=== PATIENT | male | born 1955 | race Caucasian/White ===

== ENCOUNTER 2017-06-08 04:11 | Inpatient (IN) | payer OTHER ==
--- NOTE | 2017-06-08 04:42 | ED ---
General Adult HPI - General Source: patient, RN notes reviewed, old records reviewed Mode of arrival: ambulatory Limitations: no limitations <Bernard Mohan - Last Filed: 06/08/17 06:22> <Isaias Butler - Last Filed: 06/08/17 08:43> - General Chief complaint: Chest Pain Stated complaint: chest/abd pain Time Seen by Provider: 06/08/17 04:21 - History of Present Illness Initial comments: 62-year-old male presents for evaluation of epigastric and right upper quadrant pain. Patient states this has been present for the past one month. He has been evaluated by his primary care physician and his leadership development consultant for this pain. States that the pain was more severe this evening, woke him from sleep. Denies nausea vomiting. Patient states he's had a normal bowel movements. Denies fever or chills. Denies central chest pain or pressure. He does have history of open heart surgery in 2012, as well as history of atrial fibrillation , is currently on Coumadin. Denies shortness of breath. Denies lower abdominal pain. (Bernard Mohan) - Related Data Allergies Allergy/AdvReac Type Severity Reaction Status Date / Time No Known Allergies Allergy Verified 06/08/17 07:55 Review of Systems ROS Other: All systems not noted in ROS Statement are negative. <Bernard Mohan - Last Filed: 06/08/17 06:22> ROS Other: All systems not noted in ROS Statement are negative. <Isaias Butler - Last Filed: 06/08/17 08:43> ROS Statement: Those systems with pertinent positive or pertinent negative responses have been documented in the HPI. Past Medical History Past Medical History: Coronary Artery Disease (CAD), Hyperlipidemia, Hypertension, Prostate Disorder History of Any Multi-Drug Resistant Organisms: None Reported Past Surgical History: Coronary Bypass/CABG Past Psychological History: No Psychological Hx Reported Smoking Status: Former smoker Past Alcohol Use History: None Reported Past Drug Use History: None Reported <Bernard Mohan - Last Filed: 06/08/17 06:22> General Exam Limitations: no limitations General appearance: alert, in no apparent distress Head exam: Present: atraumatic, normocephalic Eye exam: Present: normal appearance, PERRL, EOMI ENT exam: Present: normal exam, normal oropharynx, mucous membranes dry Neck exam: Present: normal inspection. Absent: tenderness, meningismus Respiratory exam: Present: normal lung sounds bilaterally. Absent: respiratory distress, wheezes Cardiovascular Exam: Present: regular rate, normal rhythm GI/Abdominal exam: Present: soft, distended, tenderness (Epigastric and right upper quadrant tenderness) Extremities exam: Present: normal inspection, normal capillary refill. Absent: pedal edema Neurological exam: Present: alert, oriented X3, CN II-XII intact. Absent: motor sensory deficit Psychiatric exam: Present: normal affect, normal mood Skin exam: Present: warm, dry, intact. Absent: cyanosis, diaphoretic <Bernard Mohan - Last Filed: 06/08/17 06:22> Course <Bernard Mohan - Last Filed: 06/08/17 06:22> <Isaias Butler - Last Filed: 06/08/17 08:43> Vital Signs 06/08/17 06/08/17 04:15 06:16 Temperature 97.0 F L Pulse Rate 115 H 76 Respiratory 20 18 Rate Blood Pressure 113/71 104/68 O2 Sat by Pulse 97 96 Oximetry - Reevaluation(s) Reevaluation #1: 06/08/17 0700 Patient's care is signed out to Dr. Butler at shift change, awaiting right upper quadrant ultrasound. (Bernard Mohan) EKG Findings - EKG Comments: EKG Findings:: EKG shows sinus tachycardia, ventricular rate 108, [place] interval 154, castration 74, QTC 444, no ST segment elevation or depression <Bernard Mohan - Last Filed: 06/08/17 06:22> Medical Decision Making - Lab Data Result diagrams: 06/08/17 04:45 06/08/17 04:45 <Bernard Mohan - Last Filed: 06/08/17 06:22> - Lab Data Result diagrams: 06/08/17 04:45 06/08/17 04:45 - Radiology Data Radiology results: report reviewed (Ultrasound gallbladder shows the liver is diffusely heterogeneous and course patient suspicion for underlying hepatocellular disease. No evidence of cholelithiasis or acute cholecystitis.) , image reviewed (Chest x-ray shows postoperative changes. No acute findings.) <Isaias Butler - Last Filed: 06/08/17 08:43> - Medical Decision Making 62-year-old male presenting with one month history of epigastric pain and right upper quadrant pain. Patient does have significant cardiac disease, denies any central chest pain, EKG is nonischemic. Laboratory studies reveal white blood cell count 7.2, hemoglobin 14.1, INR is 2.0 which is therapeutic. Total bili elevated 2.1, with no baseline for comparison, AST is significantly elevated 663 , ALT elevated at 91. Alk phos 436. Troponin is negative. Patient does have remote history of daily alcohol use, however he states he has not had a drink in several months. Given the abnormal liver tests, ultrasound will be obtained. (Bernard Mohan) Patient was reevaluated by myself, Dr. Butler. Patient resting comfortably in bed. Abdomen is soft. There is mild hepatomegaly. There is mild to moderate tenderness to the epigastric and right upper quadrant. Patient and family updated on results. Case was discussed in detail with Dr. Padilla, who will admit for Dr. Woowdard. She does request hepatitis panel, subcu heparin, aspirin, repeat troponins, and consult with cardiology and gastroenterology. Patient and family were updated on plan. (Isaias Butler) - Lab Data Lab Results 06/08/17 06/08/17 06/08/17 Range/Units 04:45 04:45 04:45 WBC 7.2 (3.8-10.6) k/uL RBC 4.68 (4.30-5.90) m/uL Hgb 14.1 (13.0-17.5) gm/dL Hct 46.6 (39.0-53.0) % MCV 99.5 (80.0-100.0) fL MCH 30.2 (25.0-35.0) pg MCHC 30.3 L (31.0-37.0) g/dL RDW 14.3 (11.5-15.5) % Plt Count 317 (150-450) k/uL Neutrophils % 78 % Lymphocytes % 11 % Monocytes % 6 % Eosinophils % 1 % Basophils % 1 % Neutrophils # 5.7 (1.3-7.7) k/uL Lymphocytes # 0.8 L (1.0-4.8) k/uL Monocytes # 0.4 (0-1.0) k/uL Eosinophils # 0.1 (0-0.7) k/uL Basophils # 0.1 (0-0.2) k/uL Macrocytosis Slight PT (9.0-12.0) sec INR (<1.2) APTT (22.0-30.0) sec Sodium 138 (137-145) mmol/L Potassium 4.9 (3.5-5.1) mmol/L Chloride 101 (98-107) mmol/L Carbon Dioxide 24 (22-30) mmol/L Anion Gap 13 mmol/L BUN 22 H (9-20) mg/dL Creatinine 0.90 (0.66-1.25) mg/dL Est GFR (MDRD) Af Amer >60 (>60 ml/min/1.73 sqM) Est GFR (MDRD) Non-Af >60 (>60 ml/min/1.73 sqM) Glucose 87 (74-99) mg/dL Calcium 9.2 (8.4-10.2) mg/dL Magnesium 1.7 (1.6-2.3) mg/dL Total Bilirubin 2.1 H (0.2-1.3) mg/dL AST 663 H (17-59) U/L ALT 91 H (21-72) U/L Alkaline Phosphatase 436 H (38-126) U/L Total Creatine Kinase 1517 H (55-170) U/L CK-MB (CK-2) 0.3 (0.0-2.4) ng/mL CK-MB (CK-2) Rel Index 0.0 Troponin I <0.012 (0.000-0.034) ng/mL NT-Pro-B Natriuret Pep pg/mL Total Protein 6.7 (6.3-8.2) g/dL Albumin 3.5 (3.5-5.0) g/dL Amylase 31 (30-110) U/L Lipase 37 (23-300) U/L 06/08/17 06/08/17 Range/Units 04:45 04:45 WBC (3.8-10.6) k/uL RBC (4.30-5.90) m/uL Hgb (13.0-17.5) gm/dL Hct (39.0-53.0) % MCV (80.0-100.0) fL MCH (25.0-35.0) pg MCHC (31.0-37.0) g/dL RDW (11.5-15.5) % Plt Count (150-450) k/uL Neutrophils % % Lymphocytes % % Monocytes % % Eosinophils % % Basophils % % Neutrophils # (1.3-7.7) k/uL Lymphocytes # (1.0-4.8) k/uL Monocytes # (0-1.0) k/uL Eosinophils # (0-0.7) k/uL Basophils # (0-0.2) k/uL Macrocytosis PT 18.2 H (9.0-12.0) sec INR 2.0 H (<1.2) APTT 28.9 (22.0-30.0) sec Sodium (137-145) mmol/L Potassium (3.5-5.1) mmol/L Chloride (98-107) mmol/L Carbon Dioxide (22-30) mmol/L Anion Gap mmol/L BUN (9-20) mg/dL Creatinine (0.66-1.25) mg/dL Est GFR (MDRD) Af Amer (>60 ml/min/1.73 sqM) Est GFR (MDRD) Non-Af (>60 ml/min/1.73 sqM) Glucose (74-99) mg/dL Calcium (8.4-10.2) mg/dL Magnesium (1.6-2.3) mg/dL Total Bilirubin (0.2-1.3) mg/dL AST (17-59) U/L ALT (21-72) U/L Alkaline Phosphatase (38-126) U/L Total Creatine Kinase (55-170) U/L CK-MB (CK-2) (0.0-2.4) ng/mL CK-MB (CK-2) Rel Index Troponin I (0.000-0.034) ng/mL NT-Pro-B Natriuret Pep 369 pg/mL Total Protein (6.3-8.2) g/dL Albumin (3.5-5.0) g/dL Amylase (30-110) U/L Lipase (23-300) U/L Disposition <Bernard Mohan - Last Filed: 06/08/17 06:22> Decision Time: 08:43 <Isaias Butler - Last Filed: 06/08/17 08:43> Clinical Impression: Chest pain, Abdominal pain, Elevated liver enzymes Disposition: ADMITTED IP TO THIS [facility] Referrals: Zach Woodward MD [Primary Care Provider] - 1-2 days
[2017-06-08 05:03] LABS: Basophils # (A) 0.1 k/uL (0-0.2); Basophils % (A) 1 %; Eosinophils # (A) 0.1 k/uL (0-0.7); Eosinophils % (A) 1 %; HCT 46.6 % (39.0-53.0); HGB 14.1 gm/dL (13.0-17.5); Lymphocytes # (A) 0.8 k/uL (1.0-4.8); Lymphocytes % (A) 11 %; MCH 30.2 pg (25.0-35.0); MCHC 30.3 g/dL (31.0-37.0); MCV 99.5 fL (80.0-100.0); Macrocytosis Slight; Mean Platelet Volume 7.3; Monocytes # (A) 0.4 k/uL (0-1.0); Monocytes % (A) 6 %; Neutrophils # (A) 5.7 k/uL (1.3-7.7); Neutrophils % (A) 78 %; Platelet Count 317 k/uL (150-450); RBC 4.68 m/uL (4.30-5.90); RDW 14.3 % (11.5-15.5); WBC 7.2 k/uL (3.8-10.6)
[2017-06-08 05:08] LABS: Partial Thromboplastin Time 28.9 sec (22.0-30.0); Prothrombin Time 18.2 sec (9.0-12.0)
[2017-06-08 05:09] LABS: ALT 91 U/L (21-72); AST 663 U/L (17-59); Albumin 3.5 g/dL (3.5-5.0); Alkaline Phosphatase 436 U/L (38-126); Amylase 31 U/L (30-110); Anion Gap 13 mmol/L; Blood Urea Nitrogen 22 mg/dL (9-20); Calcium 9.2 mg/dL (8.4-10.2); Carbon Dioxide 24 mmol/L (22-30); Chloride 101 mmol/L (98-107); Glucose 87 mg/dL (74-99); Lipase 37 U/L (23-300); Potassium 4.9 mmol/L (3.5-5.1); Sodium 138 mmol/L (137-145); Total Bilirubin 2.1 mg/dL (0.2-1.3); Total Protein 6.7 g/dL (6.3-8.2)
--- NOTE | 2017-06-08 05:28 | XR ---
EXAM: XR Chest, 2 Views CLINICAL HISTORY: ITS.REASON XR Reason: Chest Pain TECHNIQUE: Frontal and lateral views of the chest. COMPARISON: No relevant prior studies available. FINDINGS: Lungs: Low lung volumes. Pleural space: Unremarkable. No pneumothorax. Heart: CABG changes noted. Mediastinum: Unremarkable. Bones/joints: Unremarkable. Other findings: IMPRESSION: No acute findings.
[2017-06-08 05:30] LABS: Creatine Kinase 1517 U/L (55-170)
[2017-06-08 05:42] LABS: Creatine Kinase MB 0.3 ng/mL (0.0-2.4); Troponin I <0.012 ng/mL (0.000-0.034)
[2017-06-08] MEDS: SODIUM CHLORIDE 0.9% 1,000 ML IV SCH ×2 (06:15→16:31)
--- NOTE | 2017-06-08 07:44 | US ---
EXAMINATION TYPE: US gallbladder DATE OF EXAM: 06/08/2017 COMPARISON: NONE CLINICAL HISTORY: Pain. Bloated, hardened abdomen EXAM MEASUREMENTS: Liver Length: 23.5 cm Gallbladder Wall: 0.2cm CBD: 0.5 cm Right Kidney: 10.4 x 5.0 x 6.6 centimeter. Pancreas: Obscured by bowel gas Liver: enlarged, diffusely heterogeneous. This limits evaluation for underlying hepatic masses. Gallbladder: small, no stones seen Evidence for sonographic Avalos's sign: no CBD: Within normal limits Right Kidney: No hydronephrosis or masses seen Liver is enlarged and diffusely heterogenous in echotexture; IMPRESSION: 1. The liver is diffusely heterogenous and coarsened in echotexture raising the suspicion for underly ing hepatocellular disease. 2. No sonographic evidence of cholelithiasis or acute cholecystitis.
[2017-06-08] MEDS ORDERED: ASPIRIN 81 MG PO STA (08:44)
[2017-06-08] MEDS ORDERED: NITROGLYCERIN SL TABS 0.4 MG TAB SUBLINGUAL PRN (08:44)
[2017-06-08] MEDS: HEPARIN SODIUM,PORCINE 5,000 UNIT/ML 1 ML VIAL SQ SCH ×2 (09:25→20:16)
[2017-06-08] MEDS: PANTOPRAZOLE 40 MG/10 ML VIAL IVP SCH (09:27)
[2017-06-08 11:37] LABS: Creatine Kinase 1339 U/L (55-170)
[2017-06-08 11:50] LABS: Creatine Kinase MB 0.5 ng/mL (0.0-2.4); Troponin I <0.012 ng/mL (0.000-0.034)
[2017-06-08] MEDS ORDERED: INFLUENZA VACCINE (6 MOS+) 60 MCG/0.5 ML SYRINGE IM ONE (11:57)
[2017-06-08] MEDS ORDERED: PNEUMOCOCCAL VACC-PNEUMOVAX 23 25 MCG/0.5 ML VIAL IM ONE (11:58)
[2017-06-08] MEDS ORDERED: IOHEXOL 350 MG/ML 25 ML BOTTLE (ORAL USE) PO PRN (12:37)
[2017-06-08] MEDS ORDERED: RX INFO: IV CONTRAST WAS GIVEN 1 EACH MISC MISCELLANE PRN (12:37)
--- NOTE | 2017-06-08 14:47 | CT ---
EXAMINATION TYPE: CT abdomen pelvis w con DATE OF EXAM: 06/08/2017 COMPARISON: 07/27/2011 INDICATION: Epigastric pain x 1 1/2 months and elevated LFTs. DLP: 1847.3 mGycm, Automated exposure control for dose reduction was used. CONTRAST: 100 mL of Omnipaque 300. Study performed with Oral Contrast TECHNIQUE: Axial images were obtained from above the diaphragm to the pubic rami in the axial plane a t 5 mm thick sections. Reconstructed images are reviewed on the computer in the coronal plane. FINDINGS: Limited CT sections are obtained the lung bases. Small right pleural effusion is present. Minimal co mpressive atelectasis within the dependent portion of the right lung base. CT ABDOMEN: Liver: Small amount of ascites is adjacent to the liver. Liver is heterogenous density. Large infiltr ative mass appears to be present predominantly within the right lobe of the liver. An infiltrative pr ocess could also be considered within the differential.. Additional workup of the liver is recommende d. Spleen: Normal Pancreas: Fatty infiltration present within the residual atrophic pancreas. Adrenal glands: The adrenal glands are normal. Gallbladder: Normal Kidneys: No masses are evident. No hydronephrosis is present. No cysts are present. Delayed images were obtained through the kidneys, which remain unremarkable. Aorta: Vascular calcification is within the aorta. Inferior vena cava: Normal. CT PELVIS: Loops of bowel within the abdomen and pelvis are normal. There are scattered diverticuli within t he sigmoid colon without evidence of acute diverticulitis. Oral contrast passes through small bowel l oops to the proximal colon. Appendix: Normal as visualized. Urinary bladder: Normal. Genitourinary structures: Prostate contains multiple brachytherapy seeds. Osseous structures: Degenerative changes are within the spine. Degenerative disc changes are present. No suspicious lytic or sclerotic lesions are identified. IMPRESSIONS: 1. Infiltrative process within the liver suspicious for metastatic lesion such as prostate metastase s. Liver is enlarged. Additional workup is recommended. 2. Minimal ascites adjacent to the liver. 3. Small right pleural effusion with adjacent atelectasis or pneumonia right lung base.
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
[2017-06-08 16:55] LABS: Hepatitis A Antibody IgM Non-Reactive (Non-Reactive); Hepatitis B Core IgM Non-Reactive (Non-Reactive)
[2017-06-08 17:08] LABS: Creatine Kinase 1214 U/L (55-170)
[2017-06-08 17:18] LABS: Creatine Kinase MB 0.6 ng/mL (0.0-2.4); Troponin I <0.012 ng/mL (0.000-0.034)
[2017-06-08] MEDS: MORPHINE SULFATE 4 MG/ML SYRINGE IVP PRN ×2 (18:32→23:30)
[2017-06-08] MEDS: METOPROLOL TARTRATE 25 MG TAB PO SCH (20:16)
[2017-06-08] MEDS: LISINOPRIL 20 MG TAB PO SCH (20:16)
[2017-06-08] MEDS ORDERED: METOPROLOL TARTRATE 50 MG TAB PO SCH (21:00)
--- NOTE | 2017-06-09 01:03 | CONS ---
CONSULTATION This is a 62-year-old gentleman with a history of CAD, prior aortocoronary bypass surgery that was performed in 2012. This gentleman also has prostate CA for which he received treatment and his PSA still seems high. I saw him in the office on the of this month. He went for a routine lab work at [facility] and was found to have INR of more than 8.0. I tried to give him oral vitamin K, but this was not available. Patient did not have any active bleeding and a repeat INR on the was 5.5. This hospitalization is because of abdominal discomfort. The patient has significant abnormalities of all his liver function tests. His CPK is elevated and his AST is 663, ALT is 91, alkaline phosphatase is 436. Troponins are normal. Patient has stable CAD without symptoms of angina, paroxysmal atrial fibrillation for which he was on Coumadin that has been held for the last 7-8 days. INR today is 2.0. His abdominal discomfort seems to be related more or less to the liver pathology and he is getting a CAT scan and further investigation. Cardiac-mckoy he is stable, has no angina, but given his circumstances, I would discontinue completely any to form of anticoagulation until the liver issues are resolved or addressed. Additionally, I would also recommend that we stop atorvastatin for this patient. He has underlying hypertension, history of prostate CA status post radiation therapy, hypertension and hypercholesterolemia, but atorvastatin 40 mg will be discontinued. PAST MEDICAL HISTORY: 1. CAD with prior aortocoronary bypass surgery that was performed in 2012 details of which are not available to me immediately. 2. Prostate CA status post radiation therapy. 3. Paroxysmal atrial fibrillation. 4. Hypercholesterolemia. 5. Hypertension. MEDICATIONS: At home include Flomax, Lipitor 40 mg daily, Zestril 20 mg b.i.d., vitamin D supplements, Lopressor 75 mg b.i.d., vitamin D supplements. He has been off Coumadin for quite some time. It appears that his sudden elevation of INR was probably related to his underlying liver issues. Ultrasound of the gallbladder revealed that the liver area has coarse texture, raising the suspicion for hepatocellular disease, but no evidence of any cholelithiasis. He also had a CT scan of the abdomen and pelvis and there is evidence of probable infiltrative process for metastatic lesion and this patient's PSA has also been elevated. There is enlargement of liver, minimal ascites, right pleural effusion which showed mild atelectasis. EXAMINATION: Blood pressure is 116/70, pulse rate is about 88 per minute sinus. HEENT: Unremarkable. Fundus was not examined by me. NECK: Supple. There is no JVD. I do not hear a carotid bruit. Heart exam reveals S1, S2 with some tachycardia. No significant murmurs. Lungs reveal bilateral air entry. Abdomen is distended. There is hepatomegaly noted. Lower extremities reveal diminished pulses. Central nervous system grossly no focal deficits. EKG revealed sinus tachycardia, cannot exclude old inferior AL. No acute changes. Troponin levels are normal. IMPRESSION: 1. Hepatomegaly to rule out any infiltrative process in the liver such as metastasis. Significant abnormality of liver function tests and recent elevation of INR, which is understandable because of liver pathology. 2. Stable coronary artery disease with prior bypass surgery. 3. History of prostate carcinoma with the rising PSA according to the patient. He received radiation therapy. 4. Hyperlipidemia. 5. Hypertension. 6. History of paroxysmal atrial fibrillation. RECOMMENDATIONS: We will discontinue atorvastatin and all forms of anticoagulation and seek input from Oncology and Urology regarding his prostate issues. Prognosis remains guarded. No intervention from a cardiac standpoint. Thank you very much for the consult. MMODL / IJN: [id number] /
[2017-06-09] MEDS: SODIUM CHLORIDE 0.9% 1,000 ML IV SCH ×2 (05:02→15:12)
[2017-06-09] MEDS: MORPHINE SULFATE 4 MG/ML SYRINGE IVP PRN ×2 (06:22→15:12)
[2017-06-09 07:06] LABS: Basophils # (A) 0.1 k/uL (0-0.2); Basophils % (A) 1 %; Eosinophils # (A) 0.1 k/uL (0-0.7); Eosinophils % (A) 2 %; HCT 44.1 % (39.0-53.0); HGB 13.3 gm/dL (13.0-17.5); Lymphocytes # (A) 0.9 k/uL (1.0-4.8); Lymphocytes % (A) 16 %; MCH 29.4 pg (25.0-35.0); MCHC 30.1 g/dL (31.0-37.0); MCV 97.7 fL (80.0-100.0); Mean Platelet Volume 7.5; Monocytes # (A) 0.5 k/uL (0-1.0); Monocytes % (A) 8 %; Neutrophils # (A) 4.1 k/uL (1.3-7.7); Neutrophils % (A) 71 %; Platelet Count 299 k/uL (150-450); RBC 4.51 m/uL (4.30-5.90); RDW 14.5 % (11.5-15.5); WBC 5.7 k/uL (3.8-10.6)
[2017-06-09 07:15] LABS: ALT 83 U/L (21-72); AST 631 U/L (17-59); Alkaline Phosphatase 372 U/L (38-126); Anion Gap 11 mmol/L; Blood Urea Nitrogen 21 mg/dL (9-20); Calcium 8.5 mg/dL (8.4-10.2); Carbon Dioxide 24 mmol/L (22-30); Chloride 103 mmol/L (98-107); Cholesterol 92 mg/dL (<200); Glucose 73 mg/dL (74-99); HDL Cholesterol 28 mg/dL (40-60); LDL Cholesterol,Calculated 42 mg/dL (0-99); Potassium 4.5 mmol/L (3.5-5.1); Sodium 138 mmol/L (137-145); Total Bilirubin 1.7 mg/dL (0.2-1.3); Triglycerides 112 mg/dL (<150)
[2017-06-09] MEDS: HEPARIN SODIUM,PORCINE 5,000 UNIT/ML 1 ML VIAL SQ SCH ×2 (08:15→20:10)
[2017-06-09] MEDS: LISINOPRIL 20 MG TAB PO SCH ×2 (08:16→20:10)
[2017-06-09] MEDS: METOPROLOL TARTRATE 25 MG TAB PO SCH ×2 (08:16→20:10)
[2017-06-09] MEDS: PANTOPRAZOLE 40 MG/10 ML VIAL IVP SCH (08:16)
[2017-06-09] MEDS: TAMSULOSIN 0.4 MG CAP.ER.24H PO SCH (08:16)
[2017-06-09] MEDS: ONDANSETRON 4 MG/2 ML VIAL IVP PRN (08:20)
[2017-06-09] MEDS ORDERED: ASPIRIN 325 MG TAB PO SCH (09:00)
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
[2017-06-09 11:49] VITALS: BMI 33.8
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
--- NOTE | 2017-06-09 16:24 | PN ---
PROGRESS NOTE Mr. Evans is a 62-year-old gentleman with the history of aortocoronary bypass surgery in 2013. He also has paroxysmal atrial fibrillation. He has prostate cancer and now presented with a liver function abnormalities and also concern that there may be metastasis. He remains in sinus rhythm, hemodynamically stable. Vital signs are stable. S1, S2 heard normally. Lungs are clear. Abdomen and lower extremity exam unchanged. There is evidence of hepatomegaly noted. From a cardiac standpoint, no intervention is necessary. We will continue the beta blockers. Under the circumstances, I would not anticoagulated the patient and also stop atorvastatin. I will await input from Dr. Miller and Oncology regarding the possibility of any metastatic disease to the liver. I will see the patient as needed during the hospitalization. Thank you very much for the consult. MMCHASEL / IJN: [id number] /
[2017-06-10] MEDS: SODIUM CHLORIDE 0.9% 1,000 ML IV SCH ×3 (02:11→21:03)
[2017-06-10 07:52] LABS: Basophils # (A) 0.1 k/uL (0-0.2); Basophils % (A) 2 %; Eosinophils # (A) 0.1 k/uL (0-0.7); Eosinophils % (A) 2 %; HCT 37.8 % (39.0-53.0); HGB 11.7 gm/dL (13.0-17.5); Hypochromasia Slight; Lymphocytes # (A) 0.6 k/uL (1.0-4.8); Lymphocytes % (A) 12 %; MCH 29.9 pg (25.0-35.0); MCHC 30.9 g/dL (31.0-37.0); Mean Platelet Volume 7.9; Monocytes # (A) 0.5 k/uL (0-1.0); Monocytes % (A) 9 %; Neutrophils # (A) 3.9 k/uL (1.3-7.7); Neutrophils % (A) 74 %; Platelet Count 240 k/uL (150-450); RDW 14.5 % (11.5-15.5); WBC 5.3 k/uL (3.8-10.6)
[2017-06-10 08:17] LABS: ALT 70 U/L (21-72); AST 537 U/L (17-59); Albumin 2.7 g/dL (3.5-5.0); Alkaline Phosphatase 295 U/L (38-126); Anion Gap 10 mmol/L; Blood Urea Nitrogen 21 mg/dL (9-20); Calcium 8.2 mg/dL (8.4-10.2); Carbon Dioxide 21 mmol/L (22-30); Chloride 106 mmol/L (98-107); Glucose 68 mg/dL (74-99); Potassium 4.5 mmol/L (3.5-5.1); Sodium 137 mmol/L (137-145); Total Bilirubin 1.6 mg/dL (0.2-1.3); Total Protein 5.6 g/dL (6.3-8.2)
[2017-06-10] MEDS: METOPROLOL TARTRATE 25 MG TAB PO SCH ×2 (09:02→21:00)
[2017-06-10] MEDS: HEPARIN SODIUM,PORCINE 5,000 UNIT/ML 1 ML VIAL SQ SCH ×2 (09:02→21:00)
[2017-06-10] MEDS: PANTOPRAZOLE 40 MG/10 ML VIAL IVP SCH (09:02)
[2017-06-10] MEDS: LISINOPRIL 20 MG TAB PO SCH ×2 (09:02→21:00)
[2017-06-10] MEDS: ONDANSETRON 4 MG/2 ML VIAL IVP PRN ×3 (09:03→22:14)
[2017-06-10] MEDS: MORPHINE SULFATE 4 MG/ML SYRINGE IVP PRN ×3 (09:03→22:14)
--- NOTE | 2017-06-10 10:45 | P.PN ---
Subjective Progress Note Date: 06/10/17 Principal diagnosis: Elevated liver enzymes possible infiltrative liver mass 62-year-old male with a history of prostate carcinoma admitted with elevated liver enzymes epigastric soreness pain radiographic imaging suggested of a possible infiltrative liver mass possible metastasis. LFTs are improving. Denies fever chills nausea vomiting. Mild midepigastric soreness. Reports upper thigh swelling. AFP less than 1.3. Total bilirubin 1.6. AST 537. ALT 70. Alkaline phosphatase 295. MRCP scheduled for 10:45 AM. Objective - Vital Signs Vital signs: Vital Signs Temp 97.9 F 06/10/17 07:00 Pulse 99 06/10/17 07:00 Resp 16 06/10/17 07:00 BP 116/75 06/10/17 07:00 Pulse Ox 94 L 06/10/17 07:00 Intake & Output 06/09/17 06/10/17 06/10/17 18:59 06:59 18:59 Intake Total 600 1100 Output Total 0 Balance 600 1100 Weight 103.9 kg Intake: Intake, IV Titration 1100 Amount Sodium Chloride 0.9% 1, 1100 000 ml @ 100 mls/hr IV . Q10H [facility] Rx#:[id number] Oral 600 Output: Urine 0 Other: Voiding Method Toilet Urinal # Voids 1 - Exam General appearance: The patient is alert, oriented, in no acute distress. HET: Head is normocephalic and atraumatic. Pupils are equal and reactive. Oropharynx is clear without lesions. Neck: Supple without lymphadenopathy. Trachea midline. Heart: S1 S2. Regular rate and rhythm. Lungs: No crackles or wheezes are heard. Abdomen: Soft, mild midepigastric soreness, nondistended with bowel sounds. No peritoneal signs. No palpable organomegaly or masses. Extremities: Normal skin color and turgor. No cyanosis, rash, ulceration, clubbing, or edema. Radial and pedal pulses are 2/4 bilaterally. Neurological: No focal deficits. Strength and sensation are grossly intact. - Labs CBC & Chem 7: 06/10/17 07:19 06/10/17 07:19 Labs: Abnormal Lab Results - Last 24 Hours (Table) 06/10/17 06/10/17 Range/Units 07:19 07:19 RBC 3.90 L (4.30-5.90) m/uL Hgb 11.7 L (13.0-17.5) gm/dL Hct 37.8 L (39.0-53.0) % MCHC 30.9 L (31.0-37.0) g/dL Lymphocytes # 0.6 L (1.0-4.8) k/uL Carbon Dioxide 21 L (22-30) mmol/L BUN 21 H (9-20) mg/dL Glucose 68 L (74-99) mg/dL Calcium 8.2 L (8.4-10.2) mg/dL Total Bilirubin 1.6 H (0.2-1.3) mg/dL AST 537 H (17-59) U/L Alkaline Phosphatase 295 H (38-126) U/L Total Protein 5.6 L (6.3-8.2) g/dL Albumin 2.7 L (3.5-5.0) g/dL Assessment and Plan (1) Epigastric pain Narrative/Plan: 62-year-old male admitted with persistent epigastric soreness pain x 2 months duration with elevated liver enzymes and radiographic imaging suggestive of infiltrative liver metastasis with history of underlying prostate carcinoma. History of bleeding peptic ulcer disease post CABG. Current Visit: Yes Status: Acute Code(s): R10.13 - EPIGASTRIC PAIN SNOMED Code(s): 13341980 (2) History of prostate cancer Current Visit: Yes Status: Chronic Priority: High Code(s): Z85.46 - PERSONAL HISTORY OF MALIGNANT NEOPLASM OF PROSTATE SNOMED Code(s): 080659611 (3) Elevated liver enzymes Narrative/Plan: Possible infiltrative disease possible drug induced liver injury possible combination of both. Statin medication discontinued. Current Visit: Yes Status: Acute Priority: High Code(s): R74.8 - ABNORMAL LEVELS OF OTHER SERUM ENZYMES SNOMED Code(s): 314803973 (4) Warfarin-induced coagulopathy Narrative/Plan: Elevated INR 1 week ago reported in the 9 range Coumadin on hold. Current Visit: Yes Status: Acute Code(s): D68.32 - HEMORRHAGIC DISORD D/T EXTRINSIC CIRCULATING ANTICOAGULANTS; T45.515A - ADVERSE EFFECT OF ANTICOAGULANTS, INITIAL ENCOUNTER SNOMED Code(s): 38655678 (5) History of coronary artery disease Current Visit: Yes Status: Acute Code(s): Z86.79 - PERSONAL HISTORY OF OTHER DISEASES OF THE CIRCULATORY SYSTEM SNOMED Code(s): 116930725 (6) History of coronary artery bypass graft x 3 Current Visit: Yes Status: Acute Code(s): Z95.1 - PRESENCE OF AORTOCORONARY BYPASS GRAFT SNOMED Code(s): 445713343 Plan: 1. LFTs are improving; statin medications have been discontinued. MRCP today; results we'll decide if ERCP is clinically indicated. Contingent EGD for evaluation of epigastric pain after review of MRI. Presently his epigastric pain has improved. 2. AFP. CEA pending 3. Oncology and urology consultation appreciated. PT/INR in a.m. Nothing by mouth after midnight for possible EGD tomorrow. The reactor technician has discussed the risks, benefits and alternative therapies for the above-mentioned procedure and for both sedation/analgesia as well as necessary blood product administration, if indicated, as they pertain to this patient. The patient has indicated understanding and acceptance of the risks and procedures discussed. Assessment and plan a care discussed with Dr. Miller
--- NOTE | 2017-06-10 12:17 | P.PN ---
Subjective Progress Note Date: 06/09/17 62 years old male patient of Dr. Foster with past medical history of coronary artery disease status post CABG 2012, hypertension, history of prostate cancer status post brachytherapy on chemotherapy with Casodex, back pain presents in with epigastric and right upper quadrant pain that started a few months ago. Patient states that he was a social alcohol drinker but started drinking heavily in 2014 after his assisted which includes 5 beers a day everyday of the week. He quit drinking January last year since he started noticing some vague abdominal pain which became more prominent in the past 1 month in the epigastric and right upper quadrant region. Patient denies any jaundice, itching or pruritus but does endorse loss of appetite and weight loss around 10 pounds in the past 6 weeks. He was recently treated for prostate cancer and was started on Casodex a year ago. He came to ER for evaluation of severe epigastric pain that woke him up from sleep, denies any nausea, hematemesis or diarrhea. He has had normal bowel movements. He was also on Coumadin for atrial fibrillation which is on hold for the past 1 week for elevated INR. Labs done in the ER includes a CBC which was unremarkable, INR is 2, LFTs including AST AST and alkaline phosphatase are significantly elevated , creatinine kinase 1500, troponin negative 2, lipase 37. Right upper quadrant abdominal ultrasound is negative for any gallstones or bile duct dilation. Hepatocellular disease seen. Repeat labs pending this morning. Hepatitis panel ordered. CT abdomen and pelvis ordered to rule out liver metastases. Atorvastatin and Casodex put on hold. Gastroenterology consulted. 06/09: CT of the abdomen and pelvis with contrast reveals infiltrative process within the liver suspicious for metastatic lesion such as prostate metastasis. Liver is enlarged. Minimal ascites adjacent to the liver. Small right pleural effusion with adjacent atelectasis or pneumonia in the right lung base. Patient has been seen by GI and AFP and CEA ordered. Patient is scheduled for MRCP today. Patient is currently on a clear liquid diet. Patient has been seen by oncology and PSA has been ordered and consult added for urology. Patient was seen by Dr. Zamorano. Patient has been seen by cardiology with no plan for any cardiac intervention. Troponins have been negative. Patient is complaining of bout of nausea today and Zofran added and nausea resolved. Patient denies any pain at this point. He denies any chest pain. Aspirin will be discontinued. He denies any change in his bowel movements. He is urinating without any difficulty. [facility] Objective - Vital Signs Vital signs: Vital Signs Temp 97.8 F 06/09/17 08:00 Pulse 107 H 06/09/17 08:00 Resp 14 06/09/17 08:00 BP 126/78 06/09/17 08:00 Pulse Ox 94 L 06/09/17 08:00 Intake & Output 06/08/17 06/09/17 06/09/17 18:59 06:59 18:59 Intake Total 240 1900 Balance 240 1900 Weight 103.9 kg Intake: Intake, IV Titration 1600 Amount Sodium Chloride 0.9% 1, 1600 000 ml @ 100 mls/hr IV . Q10H [facility] Rx#:[id number] Oral 240 300 Other: Voiding Method Toilet Urinal - Exam General appearance: cooperative, no acute distress, obese - EENT Eyes: anicteric sclerae, PERRLA, normal appearance ENT: hearing grossly normal - Neck Neck: no lymphadenopathy, normal ROM, no other, no rigidity, no stridor, no thyromegaly - Respiratory Respiratory: bilateral: CTA, negative: diminished, dullness, rales, rhonchi - Cardiovascular Rhythm: regular Heart sounds: normal: S1, S2 Abnormal Heart Sounds: no systolic murmur, no diastolic murmur, no rub, no S3 Gallop, no S4 Gallop, no click, no other - Gastrointestinal General gastrointestinal: normal bowel sounds, soft, tender to palpate in the epigastric region and the right upper quadrant. - Integumentary Integumentary: no rash - Neurologic Neurologic: CNII-XII intact - Musculoskeletal Musculoskeletal: , strength equal bilaterally - Psychiatric Psychiatric: A&O x's 3, appropriate affect - Labs CBC & Chem 7: 06/10/17 07:19 06/10/17 07:19 Labs: Abnormal Lab Results - Last 24 Hours (Table) 06/08/17 06/08/17 06/09/17 Range/Units 11:03 16:29 06:14 MCHC (31.0-37.0) g/dL Lymphocytes # (1.0-4.8) k/uL BUN 21 H (9-20) mg/dL Glucose 73 L (74-99) mg/dL Total Bilirubin 1.7 H (0.2-1.3) mg/dL AST 631 H (17-59) U/L ALT 83 H (21-72) U/L Alkaline Phosphatase 372 H (38-126) U/L Total Creatine Kinase 1339 H 1214 H (55-170) U/L Total Protein 6.0 L (6.3-8.2) g/dL Albumin 3.0 L (3.5-5.0) g/dL HDL Cholesterol 28 L (40-60) mg/dL 06/09/17 Range/Units 06:14 MCHC 30.1 L (31.0-37.0) g/dL Lymphocytes # 0.9 L (1.0-4.8) k/uL BUN (9-20) mg/dL Glucose (74-99) mg/dL Total Bilirubin (0.2-1.3) mg/dL AST (17-59) U/L ALT (21-72) U/L Alkaline Phosphatase (38-126) U/L Total Creatine Kinase (55-170) U/L Total Protein (6.3-8.2) g/dL Albumin (3.5-5.0) g/dL HDL Cholesterol (40-60) mg/dL Assessment and Plan Plan: 1 epigastric abdominal pain likely secondary to hepatocellular disease possible metastatic disease from prostate cancer. Oncology consulted and urology consult it. GI has ordered MRCP, AFP, CEA. #2 elevated transaminitis likely secondary to hepatocellular disease from metastatic prostate cancer , hold atorvastatin and Casodex due to elevated transaminitis . Hepatitis panel ordered. Gastroenterology consult placed #3 prostate cancer status post brachytherapy on Casodex for one year. Hold Casodex for concern of hepatic impairment. Continue Flomax 0.4 mg daily #4 hypertension continue lisinopril 20 mg twice a day with metoprolol 75 mg twice daily #5 hyperlipidemia hold Lipitor for hepatic impairment #5 DVT prophylaxis with heparin 5000 every 12 #6 GI prophylaxis with Protonix 40 mg IV daily CODE STATUS full code Discharge plan: Return home Impression and plan of care have been directed as dictated by the signing physician. Kaley Bar nurse practitioner acting as scribe for signing physician.
[2017-06-10] MEDS: TAMSULOSIN 0.4 MG CAP.ER.24H PO SCH (12:21)
--- NOTE | 2017-06-10 13:41 | P.PN ---
Progress Note - Text Progress Note Date: 06/10/17 The patient continues to have some right abdominal pain. He had a MR study of his liver late this am but the results are pending. PSA was 142.6. I told the patient and his that this most likely represents metastatic prostate cancer to the liver, which in my experience is unusual. His PSA has risen rapidly since it was checked on 04/22/2017 and was 18.2. Testosterone at that time was 18.2 and he received a 6 month Lupron and has continued bicalutamide. I told him that he could be switched from bicalutamide to enzalutamide or abiatarone but that chemotherapy will probably be a better initial option. Dr Hand will most likely discuss this with him later today.
--- NOTE | 2017-06-10 15:15 | P.PN ---
Subjective Progress Note Date: 06/10/17 62 years old male patient of Dr. Foster with past medical history of coronary artery disease status post CABG 2012, hypertension, history of prostate cancer status post brachytherapy on chemotherapy with Casodex, back pain presents in with epigastric and right upper quadrant pain that started a few months ago. Patient states that he was a social alcohol drinker but started drinking heavily in 2014 after his [facility]ci which includes 5 beers a day everyday of the week. He quit drinking January last year since he started noticing some vague abdominal pain which became more prominent in the past 1 month in the epigastric and right upper quadrant region. Patient denies any jaundice, itching or pruritus but does endorse loss of appetite and weight loss around 10 pounds in the past 6 weeks. He was recently treated for prostate cancer and was started on Casodex a year ago. He came to ER for evaluation of severe epigastric pain that woke him up from sleep, denies any nausea, hematemesis or diarrhea. He has had normal bowel movements. He was also on Coumadin for atrial fibrillation which is on hold for the past 1 week for elevated INR. Labs done in the ER includes a CBC which was unremarkable, INR is 2, LFTs including AST AST and alkaline phosphatase are significantly elevated , creatinine kinase 1500, troponin negative 2, lipase 37. Right upper quadrant abdominal ultrasound is negative for any gallstones or bile duct dilation. Hepatocellular disease seen. Repeat labs pending this morning. Hepatitis panel ordered. CT abdomen and pelvis ordered to rule out liver metastases. Atorvastatin and Casodex put on hold. Gastroenterology consulted. 06/09: CT of the abdomen and pelvis with contrast reveals infiltrative process within the liver suspicious for metastatic lesion such as prostate metastasis. Liver is enlarged. Minimal ascites adjacent to the liver. Small right pleural effusion with adjacent atelectasis or pneumonia in the right lung base. Patient has been seen by GI and AFP and CEA ordered. Patient is scheduled for MRCP today. Patient is currently on a clear liquid diet. Patient has been seen by oncology and PSA has been ordered and consult added for urology. Patient was seen by Dr. Zamorano. Patient has been seen by cardiology with no plan for any cardiac intervention. Troponins have been negative. Patient is complaining of bout of nausea today and Zofran added and nausea resolved. Patient denies any pain at this point. He denies any chest pain. Aspirin will be discontinued. He denies any change in his bowel movements. He is urinating without any difficulty. Patient will be transferred to the [facility] floor. 06/10: PSA is 142. Dr. Miller has relayed to patient and his family that this most likely represents metastatic prostate cancer to the liver but is unusual. Liver enzymes remain elevated but are improving slowly. Hemoglobin is 11.7. AFP is less than 1.3. CEA is pending. CA 19-9 ordered. Patient underwent MRCP today and report is pending. Patient is resumed back on regular diet. Objective - Vital Signs Vital signs: Vital Signs Temp 97.9 F 06/10/17 07:00 Pulse 99 06/10/17 07:00 Resp 16 06/10/17 07:00 BP 116/75 06/10/17 07:00 Pulse Ox 94 L 06/10/17 07:00 Intake & Output 06/09/17 06/10/17 06/10/17 18:59 06:59 18:59 Intake Total 600 1100 Output Total 0 Balance 600 1100 Weight 103.9 kg Intake: Intake, IV Titration 1100 Amount Sodium Chloride 0.9% 1, 1100 000 ml @ 100 mls/hr IV . Q10H [facility] Rx#:[id number] Oral 600 Output: Urine 0 Other: Voiding Method Toilet Toilet Urinal Urinal # Voids 1 - Exam General appearance: cooperative, no acute distress, obese - EENT Eyes: anicteric sclerae, PERRLA, normal appearance ENT: hearing grossly normal - Neck Neck: no lymphadenopathy, normal ROM, no other, no rigidity, no stridor, no thyromegaly - Respiratory Respiratory: bilateral: CTA, negative: diminished, dullness, rales, rhonchi - Cardiovascular Rhythm: regular Heart sounds: normal: S1, S2 Abnormal Heart Sounds: no systolic murmur, no diastolic murmur, no rub, no S3 Gallop, no S4 Gallop, no click, no other - Gastrointestinal General gastrointestinal: normal bowel sounds, soft, tender to palpate in the epigastric region and the right upper quadrant. - Integumentary Integumentary: no rash - Neurologic Neurologic: CNII-XII intact - Musculoskeletal Musculoskeletal: , strength equal bilaterally - Psychiatric Psychiatric: A&O x's 3, appropriate affect - Labs CBC & Chem 7: 06/10/17 07:19 06/10/17 07:19 Labs: Abnormal Lab Results - Last 24 Hours (Table) 06/09/17 06/10/17 06/10/17 Range/Units 06:41 07:19 07:19 RBC 3.90 L (4.30-5.90) m/uL Hgb 11.7 L (13.0-17.5) gm/dL Hct 37.8 L (39.0-53.0) % MCHC 30.9 L (31.0-37.0) g/dL Lymphocytes # 0.6 L (1.0-4.8) k/uL Carbon Dioxide 21 L (22-30) mmol/L BUN 21 H (9-20) mg/dL Glucose 68 L (74-99) mg/dL Calcium 8.2 L (8.4-10.2) mg/dL Total Bilirubin 1.6 H (0.2-1.3) mg/dL AST 537 H (17-59) U/L Alkaline Phosphatase 295 H (38-126) U/L Total Protein 5.6 L (6.3-8.2) g/dL Albumin 2.7 L (3.5-5.0) g/dL Total PSA 142.6 H (0.1 - 4.0) ng/mL Assessment and Plan Plan: 1 epigastric abdominal pain likely secondary to hepatocellular disease possible metastatic disease from prostate cancer or other source. Oncology consulted and urology consult. GI has ordered MRCP, CEA, Ca 19-9. #2 elevated transaminitis likely secondary to hepatocellular disease from metastatic prostate cancer , hold atorvastatin and Casodex due to elevated transaminitis . Hepatitis panel ordered. Gastroenterology consult placed #3 prostate cancer status post brachytherapy on Casodex for one year. Hold Casodex for concern of hepatic impairment. Continue Flomax 0.4 mg daily #4 hypertension continue lisinopril 20 mg twice a day with metoprolol 75 mg twice daily #5 hyperlipidemia hold Lipitor for hepatic impairment #5 DVT prophylaxis with heparin 5000 every 12 #6 GI prophylaxis with Protonix 40 mg IV daily CODE STATUS full code Discharge plan: Return home Impression and plan of care have been directed as dictated by the signing physician. Kaley Bar nurse practitioner acting as scribe for signing physician.
[2017-06-11] MEDS: SODIUM CHLORIDE 0.9% 1,000 ML IV SCH ×2 (06:43→11:12)
[2017-06-11 07:04] LABS: Basophils % (A) 1 %; Eosinophils # (A) 0.1 k/uL (0-0.7); Eosinophils % (A) 3 %; HCT 37.7 % (39.0-53.0); HGB 11.8 gm/dL (13.0-17.5); Lymphocytes # (A) 0.5 k/uL (1.0-4.8); Lymphocytes % (A) 12 %; MCH 30.4 pg (25.0-35.0); MCHC 31.2 g/dL (31.0-37.0); MCV 97.7 fL (80.0-100.0); Mean Platelet Volume 7.2; Monocytes # (A) 0.4 k/uL (0-1.0); Monocytes % (A) 9 %; Neutrophils # (A) 3.1 k/uL (1.3-7.7); Neutrophils % (A) 73 %; Platelet Count 248 k/uL (150-450); RBC 3.86 m/uL (4.30-5.90); RDW 14.8 % (11.5-15.5); WBC 4.2 k/uL (3.8-10.6)
[2017-06-11 07:07] LABS: INR 2.9 (<1.2); Prothrombin Time 25.8 sec (9.0-12.0)
[2017-06-11 07:49] LABS: ALT 66 U/L (21-72); AST 500 U/L (17-59); Albumin 2.4 g/dL (3.5-5.0); Alkaline Phosphatase 350 U/L (38-126); Anion Gap 8 mmol/L; Blood Urea Nitrogen 20 mg/dL (9-20); Carbon Dioxide 23 mmol/L (22-30); Chloride 107 mmol/L (98-107); Glucose 100 mg/dL (74-99); Potassium 4.7 mmol/L (3.5-5.1); Sodium 138 mmol/L (137-145); Total Bilirubin 1.4 mg/dL (0.2-1.3); Total Protein 5.1 g/dL (6.3-8.2)
[2017-06-11] MEDS: METOPROLOL TARTRATE 25 MG TAB PO SCH ×2 (08:33→20:53)
[2017-06-11] MEDS: TAMSULOSIN 0.4 MG CAP.ER.24H PO SCH (08:33)
[2017-06-11] MEDS: PANTOPRAZOLE 40 MG/10 ML VIAL IVP SCH (08:33)
[2017-06-11] MEDS: LISINOPRIL 20 MG TAB PO SCH ×2 (08:33→20:53)
[2017-06-11] MEDS: HEPARIN SODIUM,PORCINE 5,000 UNIT/ML 1 ML VIAL SQ SCH (08:34)
--- NOTE | 2017-06-11 08:41 | MR ---
EXAMINATION TYPE: MR MRCP DATE OF EXAM: 06/10/2017 COMPARISON: Ultrasound 06/08/[address] abdomen pelvis 06/08/2017. HISTORY: elevated liver enzymes r/o infiltrative liver mass Standard multiplanar, multisequence MRI departmental protocol Multiplanar MultiSpin echo imaging of the liver and biliary tree was performed. Mid 3-D imaging of th e gallbladder was submitted. The lack of contrast limits evaluation. FINDINGS: The liver is enlarged. Heterogenous signal is seen throughout the liver. Masslike area which appears to be infiltrative occupies most of the right hepatic lobe and portions of the medial segment left he patic lobe. Examination is suboptimal however given the lack of contrast medium. I do recommend a rep eat imaging with contrast of the liver. There is a small amount of ascites about the liver edge. The gallbladder and biliary tree are not appropriately visualized on the MRCP portion of the study. T he gallbladder appears to be free of cholelithiasis or wall thickening. There appears to be. Cortical adenopathy with several lymph nodes identified measuring up to 1.2 cm. Pancreas demonstrates fatty infiltration. No obvious mass or inflammatory process. Visualized portions of the kidneys are unremarkable as are the adrenal glands and spleen. IMPRESSION: 1. Nondiagnostic evaluation of the liver. As noted the liver is enlarged with large infiltrative proc ess suggested however the lack of contrast markedly limits evaluation. Dedicated evaluation of the li christian with contrast is advised. 2. Suboptimal evaluation of the gallbladder and biliary tree on MRCP given extensive artifact. On axi al T2 data set that the gallbladder appears to be free of focal cholelithiasis or wall thickening.
[2017-06-11] MEDS: ONDANSETRON 4 MG/2 ML VIAL IVP PRN (11:11)
[2017-06-11] MEDS: MORPHINE SULFATE 4 MG/ML SYRINGE IVP PRN (11:11)
[2017-06-11] MEDS ORDERED: PHYTONADIONE ORAL 5 MG/5 ML ORAL.SYRG PO STA (11:31)
--- NOTE | 2017-06-11 11:31 | P.PN ---
Subjective Progress Note Date: 06/11/17 Principal diagnosis: Elevated liver enzymes possible infiltrative liver mass 62-year-old male with a history of prostate carcinoma admitted with elevated liver enzymes epigastric soreness pain radiographic imaging suggested of a possible infiltrative liver mass possible metastasis. MRCP noted an enlarged liver with heterogeneous signal seen throughout the liver. Masslike area which appears to be infiltrative occupies most the right hepatic lobe and portions of the medial segment left hepatic lobe. Examination suboptimal secondary to lack of contrast. LFTs are improving. Total PSA 142.6. Denies fever chills nausea vomiting. Mild midepigastric soreness. INR 2.9. Objective - Vital Signs Vital signs: Vital Signs Temp 98.5 F 06/11/17 07:00 Pulse 79 06/11/17 07:00 Resp 16 06/11/17 07:00 BP 109/73 06/11/17 07:00 Pulse Ox 95 06/11/17 07:00 Intake & Output 06/10/17 06/11/17 06/11/17 18:59 06:59 18:59 Intake Total 600 700 Balance 600 700 Intake: Intake, IV Titration 600 700 Amount Sodium Chloride 0.9% 1, 600 700 000 ml @ 100 mls/hr IV . Q10H [facility] Rx#:[id number] Other: Voiding Method Toilet Toilet Urinal Urinal # Voids 1 - Exam General appearance: The patient is alert, oriented, in no acute distress. HET: Head is normocephalic and atraumatic. Pupils are equal and reactive. Oropharynx is clear without lesions. Neck: Supple without lymphadenopathy. Trachea midline. Heart: S1 S2. Regular rate and rhythm. Lungs: No crackles or wheezes are heard. Abdomen: Soft, mild midepigastric soreness, nondistended with bowel sounds. No peritoneal signs. No palpable organomegaly or masses. Extremities: Normal skin color and turgor. No cyanosis, rash, ulceration, clubbing, or edema. Radial and pedal pulses are 2/4 bilaterally. Neurological: No focal deficits. Strength and sensation are grossly intact. - Labs CBC & Chem 7: 06/11/17 06:45 06/11/17 06:45 Labs: Abnormal Lab Results - Last 24 Hours (Table) 06/09/17 06/11/17 06/11/17 Range/Units 06:41 06:45 06:45 RBC 3.86 L (4.30-5.90) m/uL Hgb 11.8 L (13.0-17.5) gm/dL Hct 37.7 L (39.0-53.0) % Lymphocytes # 0.5 L (1.0-4.8) k/uL PT (9.0-12.0) sec INR (<1.2) Glucose 100 H (74-99) mg/dL Calcium 8.0 L (8.4-10.2) mg/dL Total Bilirubin 1.4 H (0.2-1.3) mg/dL AST 500 H (17-59) U/L Alkaline Phosphatase 350 H (38-126) U/L Total Protein 5.1 L (6.3-8.2) g/dL Albumin 2.4 L (3.5-5.0) g/dL Total PSA 142.6 H (0.1 - 4.0) ng/mL 06/11/17 Range/Units 06:45 RBC (4.30-5.90) m/uL Hgb (13.0-17.5) gm/dL Hct (39.0-53.0) % Lymphocytes # (1.0-4.8) k/uL PT 25.8 H (9.0-12.0) sec INR 2.9 H (<1.2) Glucose (74-99) mg/dL Calcium (8.4-10.2) mg/dL Total Bilirubin (0.2-1.3) mg/dL AST (17-59) U/L Alkaline Phosphatase (38-126) U/L Total Protein (6.3-8.2) g/dL Albumin (3.5-5.0) g/dL Total PSA (0.1 - 4.0) ng/mL Assessment and Plan (1) Epigastric pain Narrative/Plan: 62-year-old male admitted with persistent epigastric soreness pain x 2 months duration with elevated liver enzymes and radiographic CT/MR CP imaging suggestive of infiltrative liver mass with history of underlying prostate carcinoma. History of bleeding peptic ulcer disease post CABG. Current Visit: Yes Status: Acute Code(s): R10.13 - EPIGASTRIC PAIN SNOMED Code(s): 18352085 (2) History of prostate cancer Current Visit: Yes Status: Chronic Priority: High Code(s): Z85.46 - PERSONAL HISTORY OF MALIGNANT NEOPLASM OF PROSTATE SNOMED Code(s): 895008568 (3) Elevated liver enzymes Narrative/Plan: Possible infiltrative disease possible drug induced liver injury possible combination of both. Statin medication discontinued. Current Visit: Yes Status: Acute Priority: High Code(s): R74.8 - ABNORMAL LEVELS OF OTHER SERUM ENZYMES SNOMED Code(s): 765789177 (4) Warfarin-induced coagulopathy Narrative/Plan: Elevated INR 1 week ago reported in the 9 range Coumadin on hold. Current INR 2.9. Current Visit: Yes Status: Acute Code(s): D68.32 - HEMORRHAGIC DISORD D/T EXTRINSIC CIRCULATING ANTICOAGULANTS; T45.515A - ADVERSE EFFECT OF ANTICOAGULANTS, INITIAL ENCOUNTER SNOMED Code(s): 98598675 (5) History of coronary artery disease Current Visit: Yes Status: Acute Code(s): Z86.79 - PERSONAL HISTORY OF OTHER DISEASES OF THE CIRCULATORY SYSTEM SNOMED Code(s): 936324852 (6) History of coronary artery bypass graft x 3 Current Visit: Yes Status: Acute Code(s): Z95.1 - PRESENCE OF AORTOCORONARY BYPASS GRAFT SNOMED Code(s): 939403664 Plan: 1. LFTs are improving; statin medications have been discontinued. MRCP results discussed with patient and family today; all questions were answered to their satisfaction. MRI findings were also discussed with oncologist Dr. Hand we 'll proceed with outpatient liver biopsy next week 06/18/2017. 2. Vitamin K 10 mg oral 1 today. Continue to hold aspirin/anticoagulation. 3. Cardiac diet today. Nothing by mouth after midnight. EGD evaluation in a.m. with repeat PT/INR in a.m. 4. Outpatient PT/INR 06/16/2017 prior to liver biopsy patient is to follow up with primary care physician with results; may require oral vitamin K prior to liver biopsy. 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 The patient has indicated understanding and acceptance of the risks and procedures discussed. Assessment and plan a care discussed with Dr. Miller
[2017-06-11] MEDS ORDERED: oxyCODONE-APAP 7.5-325MG 1 EACH TAB PO PRN (13:55)
[2017-06-12] MEDS: MORPHINE SULFATE 4 MG/ML SYRINGE IVP PRN (00:44)
[2017-06-12] MEDS: ONDANSETRON 4 MG/2 ML VIAL IVP PRN (00:45)
[2017-06-12 07:30] LABS: Basophils % (A) 1 %; Eosinophils # (A) 0.1 k/uL (0-0.7); Eosinophils % (A) 2 %; HCT 38.8 % (39.0-53.0); HGB 12.1 gm/dL (13.0-17.5); Hypochromasia Slight; Lymphocytes # (A) 0.6 k/uL (1.0-4.8); Lymphocytes % (A) 16 %; MCH 30.1 pg (25.0-35.0); MCHC 31.3 g/dL (31.0-37.0); MCV 96.3 fL (80.0-100.0); Mean Platelet Volume 7.3; Monocytes # (A) 0.4 k/uL (0-1.0); Monocytes % (A) 9 %; Neutrophils # (A) 2.7 k/uL (1.3-7.7); Neutrophils % (A) 71 %; Platelet Count 236 k/uL (150-450); RBC 4.03 m/uL (4.30-5.90); RDW 14.8 % (11.5-15.5); WBC 3.9 k/uL (3.8-10.6)
[2017-06-12 07:34] LABS: INR 1.4 (<1.2); Prothrombin Time 13.3 sec (9.0-12.0)
[2017-06-12 07:48] LABS: ALT 72 U/L (21-72); AST 533 U/L (17-59); Albumin 2.6 g/dL (3.5-5.0); Alkaline Phosphatase 375 U/L (38-126); Anion Gap 8 mmol/L; Blood Urea Nitrogen 17 mg/dL (9-20); Calcium 8.5 mg/dL (8.4-10.2); Carbon Dioxide 23 mmol/L (22-30); Chloride 110 mmol/L (98-107); Glucose 82 mg/dL (74-99); Potassium 4.3 mmol/L (3.5-5.1); Sodium 141 mmol/L (137-145); Total Bilirubin 1.7 mg/dL (0.2-1.3); Total Protein 5.4 g/dL (6.3-8.2)
[2017-06-12 07:49] VITALS: TEMP 97.6
[2017-06-12] MEDS: METOPROLOL TARTRATE 25 MG TAB PO SCH (08:57)
[2017-06-12] MEDS: PANTOPRAZOLE 40 MG/10 ML VIAL IVP SCH (08:57)
[2017-06-12] MEDS: LISINOPRIL 20 MG TAB PO SCH (09:52)
[2017-06-12] MEDS: TAMSULOSIN 0.4 MG CAP.ER.24H PO SCH (09:52)
--- NOTE | 2017-06-12 11:20 | P.PN ---
Subjective Progress Note Date: 06/11/17 62 years old male patient of Dr. Foster with past medical history of coronary artery disease status post CABG 2012, hypertension, history of prostate cancer status post brachytherapy on chemotherapy with Casodex, back pain presents in with epigastric and right upper quadrant pain that started a few months ago. 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 He quit drinking January last year since he started noticing some vague abdominal pain which became more prominent in the past 1 month in the epigastric and right upper quadrant region. Patient denies any jaundice, itching or pruritus but does endorse loss of appetite and weight loss around 10 pounds in the past 6 weeks. He was recently treated for prostate cancer and was started on Casodex a year ago. He came to ER for evaluation of severe epigastric pain that woke him up from sleep, denies any nausea, hematemesis or diarrhea. He has had normal bowel movements. He was also on Coumadin for atrial fibrillation which is on hold for the past 1 week for elevated INR. Labs done in the ER includes a CBC which was unremarkable, INR is 2, LFTs including AST AST and alkaline phosphatase are significantly elevated , creatinine kinase 1500, troponin negative 2, lipase 37. Right upper quadrant abdominal ultrasound is negative for any gallstones or bile duct dilation. Hepatocellular disease seen. Repeat labs pending this morning. Hepatitis panel ordered. CT abdomen and pelvis ordered to rule out liver metastases. Atorvastatin and Casodex put on hold. Gastroenterology consulted. 06/09: CT of the abdomen and pelvis with contrast reveals infiltrative process within the liver suspicious for metastatic lesion such as prostate metastasis. Liver is enlarged. Minimal ascites adjacent to the liver. Small right pleural effusion with adjacent atelectasis or pneumonia in the right lung base. Patient has been seen by GI and AFP and CEA ordered. Patient is scheduled for MRCP today. Patient is currently on a clear liquid diet. Patient has been seen by oncology and PSA has been ordered and consult added for urology. Patient was seen by Dr. Zamorano. Patient has been seen by cardiology with no plan for any cardiac intervention. Troponins have been negative. Patient is complaining of bout of nausea today and Zofran added and nausea resolved. Patient denies any pain at this point. He denies any chest pain. Aspirin will be discontinued. He denies any change in his bowel movements. He is urinating without any difficulty. Patient will be transferred to the [facility] floor. 06/10: PSA is 142. Dr. Miller has relayed to patient and his family that this most likely represents metastatic prostate cancer to the liver but is unusual. Liver enzymes remain elevated but are improving slowly. Hemoglobin is 11.7. AFP is less than 1.3. CEA is pending. CA 19-9 ordered. Patient underwent MRCP today and report is pending. Patient is resumed back on regular diet. 06/11: INR is 2.9, total bilirubin 1.4, AST 500, ALT 66, alkaline phosphatase 350. CA 19-9 is 2.4. MRCP reveals a nondiagnostic evaluation of the liver. Liver is enlarged with large infiltrative process suggesting however lack of contrast limits evaluation. Suboptimal evaluation of gallbladder biliary tree given extensive artifact. Gallbladder appears to be free of focal cholelithiasis or wall thickening. Patient is scheduled for EGD tomorrow morning. He is status post oral vitamin K today. Patient is complaining of bloating but pain is okay. He states he feels he has more energy today . Objective - Vital Signs Vital signs: Vital Signs Temp 98.5 F 06/11/17 07:00 Pulse 79 06/11/17 07:00 Resp 16 06/11/17 07:00 BP 109/73 06/11/17 07:00 Pulse Ox 95 06/11/17 07:00 Intake & Output 06/10/17 06/11/17 06/11/17 18:59 06:59 18:59 Intake Total 600 700 Balance 600 700 Intake: Intake, IV Titration 600 700 Amount Sodium Chloride 0.9% 1, 600 700 000 ml @ 100 mls/hr IV . Q10H [facility] Rx#:[id number] Other: Voiding Method Toilet Toilet Urinal Urinal # Voids 1 - Exam General appearance: cooperative, no acute distress, obese - EENT Eyes: anicteric sclerae, PERRLA, normal appearance ENT: hearing grossly normal - Neck Neck: no lymphadenopathy, normal ROM, no other, no rigidity, no stridor, no thyromegaly - Respiratory Respiratory: bilateral: CTA, negative: diminished, dullness, rales, rhonchi - Cardiovascular Rhythm: regular Heart sounds: normal: S1, S2 Abnormal Heart Sounds: no systolic murmur, no diastolic murmur, no rub, no S3 Gallop, no S4 Gallop, no click, no other - Gastrointestinal General gastrointestinal: normal bowel sounds, soft, tender to palpate in the epigastric region and the right upper quadrant. - Integumentary Integumentary: no rash - Neurologic Neurologic: CNII-XII intact - Musculoskeletal Musculoskeletal: , strength equal bilaterally - Psychiatric Psychiatric: A&O x's 3, appropriate affect - Labs CBC & Chem 7: 06/12/17 07:14 06/12/17 07:14 Labs: Abnormal Lab Results - Last 24 Hours (Table) 06/09/17 06/11/17 06/11/17 Range/Units 06:41 06:45 06:45 RBC 3.86 L (4.30-5.90) m/uL Hgb 11.8 L (13.0-17.5) gm/dL Hct 37.7 L (39.0-53.0) % Lymphocytes # 0.5 L (1.0-4.8) k/uL PT (9.0-12.0) sec INR (<1.2) Glucose 100 H (74-99) mg/dL Calcium 8.0 L (8.4-10.2) mg/dL Total Bilirubin 1.4 H (0.2-1.3) mg/dL AST 500 H (17-59) U/L Alkaline Phosphatase 350 H (38-126) U/L Total Protein 5.1 L (6.3-8.2) g/dL Albumin 2.4 L (3.5-5.0) g/dL Total PSA 142.6 H (0.1 - 4.0) ng/mL 06/11/17 Range/Units 06:45 RBC (4.30-5.90) m/uL Hgb (13.0-17.5) gm/dL Hct (39.0-53.0) % Lymphocytes # (1.0-4.8) k/uL PT 25.8 H (9.0-12.0) sec INR 2.9 H (<1.2) Glucose (74-99) mg/dL Calcium (8.4-10.2) mg/dL Total Bilirubin (0.2-1.3) mg/dL AST (17-59) U/L Alkaline Phosphatase (38-126) U/L Total Protein (6.3-8.2) g/dL Albumin (3.5-5.0) g/dL Total PSA (0.1 - 4.0) ng/mL Assessment and Plan Plan: 1 epigastric abdominal pain likely secondary to hepatocellular disease possible metastatic disease from prostate cancer or other source. Oncology consulted and urology consult. GI has ordered MRCP as above. His CEA remains pending. EGD tomorrow #2 elevated transaminitis likely secondary to hepatocellular disease from metastatic prostate cancer , hold atorvastatin and Casodex due to elevated transaminitis . Hepatitis panel ordered. Gastroenterology consult placed #3 prostate cancer status post brachytherapy on Casodex for one year. Hold Casodex for concern of hepatic impairment. Continue Flomax 0.4 mg daily #4 hypertension continue lisinopril 20 mg twice a day with metoprolol 75 mg twice daily #5 hyperlipidemia hold Lipitor for hepatic impairment #5 DVT prophylaxis with heparin 5000 every 12 #6 GI prophylaxis with Protonix 40 mg IV daily CODE STATUS full code Discharge plan: Return home Impression and plan of care have been directed as dictated by the signing physician. Kaley Bar nurse practitioner acting as scribe for signing physician.
[2017-06-12] MEDS ORDERED: fentaNYL (PF) 50 MCG/ML 2 ML AMP ONE (11:29)
[2017-06-12] MEDS ORDERED: SODIUM CHLORIDE 0.9% 1,000 ML IV ONE (11:30)
--- NOTE | 2017-06-12 11:41 | P.PCN ---
Date of Procedure: 06/12/17 Procedure(s) Performed: BRIEF HISTORY: Patient is a 62-year-old, pleasant, white male, scheduled for an upper endoscopy as part of evaluation of epigastric pain for the last 2 months duration. He was diagnosed with prostate cancer 2 years ago. He had a CT of the abdomen that showed possible infiltrative lesion in the right lobe of the liver for which he scheduled for a liver biopsy next week. In the meantime because of the persistent epigastric pain is scheduled for an upper endoscopy to rule out any upper GI pathology. PROCEDURE PERFORMED: Esophagogastroduodenoscopy. PREOPERATIVE DIAGNOSIS: Persistent epigastric pain of 2 months duration. IV sedation per anesthesia. PROCEDURE: After informed consent was obtained, the patient was brought into the endoscopy unit. IV sedation was administered by Anesthesia under continuous monitoring. Initially the Olympus GIF-140 video endoscope was inserted into the mouth. Esophagus intubated without any difficulty. It was gradually advanced into the stomach and duodenum and carefully examined. The bulb and the second part of the duodenum appeared normal. The scope at this time was withdrawn to the stomach, adequately insufflated with air, and upon careful examination, mucosa of the antrum, body, cardia and the fundus appeared normal. The scope was then withdrawn into the esophagus. The GE junction was located at 39 cm from the incisors. There were 2 superficial linear erosions in the distal esophagus consistent with LA grade B reflux esophagitis. The rest of the esophagus appeared ani and the patient tolerated the procedure well. IMPRESSION: 1. Two superficial erosions in the distal esophagus consistent with LA grade B reflux esophagitis. 2. Normal-appearing stomach and duodenum. RECOMMENDATIONS: The findings of this examination were discussed with the patient as well as his family. At this time will continue him on Protonix 40 mg daily. Diet will be advanced as tolerated.
[2017-06-12 12:24] VITALS: RESP 18
--- NOTE | 2017-06-12 13:31 | P.DS ---
Providers Date of admission: 06/08/17 08:46 Expected date of discharge: 06/12/17 Attending physician: Siena Padilla Consults: 06/08/17 08:44 Consult Physician Urgent Consulting Provider: Carlitos Blanco Consult Reason/Comments: Chest pain Do you want consulting provider notified?: Yes Consult Physician Urgent Consulting Provider: Ewa Miller Consult Reason/Comments: Elevated liver enzymes and abdominal pain Do you want consulting provider notified?: Yes 06/08/17 15:54 Consult Physician Routine Consulting Provider: Margarito Hand Consult Reason/Comments: epigastric pain secondary to liver metastasis from prostate cancer Do you want consulting provider notified?: Yes 06/09/17 09:58 Consult Physician Routine Consulting Provider: Evin Miller Consult Reason/Comments: treating pt for prostate cancer Do you want consulting provider notified?: Yes Primary care physician: [facility] Course: 62 years old male patient of Dr. Foster with past medical history of coronary artery disease status post CABG 2012, hypertension, history of prostate cancer status post brachytherapy on chemotherapy with Casodex, back pain presents in with epigastric and right upper quadrant pain that started a few months ago. 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 He quit drinking January last year since he started noticing some vague abdominal pain which became more prominent in the past 1 month in the epigastric and right upper quadrant region. Patient denies any jaundice, itching or pruritus but does endorse loss of appetite and weight loss around 10 pounds in the past 6 weeks. He was recently treated for prostate cancer and was started on Casodex a year ago. He came to ER for evaluation of severe epigastric pain that woke him up from sleep, denies any nausea, hematemesis or diarrhea. He has had normal bowel movements. He was also on Coumadin for atrial fibrillation which is on hold for the past 1 week for elevated INR. Labs done in the ER includes a CBC which was unremarkable, INR is 2, LFTs including AST AST and alkaline phosphatase are significantly elevated , creatinine kinase 1500, troponin negative 2, lipase 37. Right upper quadrant abdominal ultrasound is negative for any gallstones or bile duct dilation. Hepatocellular disease seen. Repeat labs pending this morning. Hepatitis panel ordered. CT abdomen and pelvis ordered to rule out liver metastases. Atorvastatin and Casodex put on hold. Gastroenterology consulted. 06/09: CT of the abdomen and pelvis with contrast reveals infiltrative process within the liver suspicious for metastatic lesion such as prostate metastasis. Liver is enlarged. Minimal ascites adjacent to the liver. Small right pleural effusion with adjacent atelectasis or pneumonia in the right lung base. Patient has been seen by GI and AFP and CEA ordered. Patient is scheduled for MRCP today. Patient is currently on a clear liquid diet. Patient has been seen by oncology and PSA has been ordered and consult added for urology. Patient was seen by Dr. Zamorano. Patient has been seen by cardiology with no plan for any cardiac intervention. Troponins have been negative. Patient is complaining of bout of nausea today and Zofran added and nausea resolved. Patient denies any pain at this point. He denies any chest pain. Aspirin will be discontinued. He denies any change in his bowel movements. He is urinating without any difficulty. Patient will be transferred to the [facility] floor. 06/10: PSA is 142. Dr. Miller has relayed to patient and his family that this most likely represents metastatic prostate cancer to the liver but is unusual. Liver enzymes remain elevated but are improving slowly. Hemoglobin is 11.7. AFP is less than 1.3. CEA is pending. CA 19-9 ordered. Patient underwent MRCP today and report is pending. Patient is resumed back on regular diet. 06/11: INR is 2.9, total bilirubin 1.4, AST 500, ALT 66, alkaline phosphatase 350. CA 19-9 is 2.4. MRCP reveals a nondiagnostic evaluation of the liver. Liver is enlarged with large infiltrative process suggesting however lack of contrast limits evaluation. Suboptimal evaluation of gallbladder biliary tree given extensive artifact. Gallbladder appears to be free of focal cholelithiasis or wall thickening. Patient is scheduled for EGD tomorrow morning. He is status post oral vitamin K today. Patient is complaining of bloating but pain is okay. He states he feels he has more energy today 06/12: Patient underwent EGD that showed 2 superficial erosions in the distal esophagus consistent with LA grade B reflux esophagitis. Normal-appearing stomach and duodenum. Dr. Davis recommended Protonix 40 mg daily. Patient can be advanced as tolerated. Patient will be discharged home today in stable condition. Discharge diagnoses: 1. Epigastric abdominal pain likely secondary to reflux esophagitis. 2. Transaminitis secondary to hepatocellular disease possible metastatic disease from prostate cancer or other source. 3. Prostate cancer status post brachytherapy on Casodex for one year. Hold Casodex for concern of hepatic impairment. 4. Hypertension 5. Hyperlipidemia Discharge plan: Return home Impression and plan of care have been directed as dictated by the signing physician. Kaley Bar nurse practitioner acting as scribe for signing physician. Patient Condition at Discharge: Good Plan - Discharge Summary Discharge Rx Participant: Yes New Discharge Prescriptions: New oxyCODONE-APAP 7.5-325MG [Percocet 7.5-325 mg] 1 each PO Q6HR PRN #20 tab PRN Reason: Pain Mag Hydrox/Al Hydrox/Simeth [Maalox] 30 ml PO TID #200 ml Pantoprazole Sodium [Protonix] 40 mg PO DAILY #30 tablet. Continue Tamsulosin HCl [Flomax] 0.4 mg PO DAILY Lisinopril [Zestril] 20 mg PO BID HYDROcodone/APAP 5-325MG [[place] 5-325] 1 tab PO BID PRN PRN Reason: Pain Metoprolol Tartrate [Lopressor] 75 mg PO BID Discontinued Cholecalciferol [Vitamin D3] 1,000 unit PO DAILY Bicalutamide [Casodex] 50 mg PO DAILY Atorvastatin [Lipitor] 40 mg PO HS Discharge Medication List HYDROcodone/APAP 5-325MG [[place] 5-325] 1 tab PO BID PRN 06/08/17 [History] Lisinopril [Zestril] 20 mg PO BID 06/08/17 [History] Metoprolol Tartrate [Lopressor] 75 mg PO BID 06/08/17 [History] Tamsulosin HCl [Flomax] 0.4 mg PO DAILY 06/08/17 [History] Mag Hydrox/Al Hydrox/Simeth [Maalox] 30 ml PO TID #200 ml 06/12/17 [Rx] Pantoprazole Sodium [Protonix] 40 mg PO DAILY #30 tablet. 06/12/17 [Rx] oxyCODONE-APAP 7.5-325MG [Percocet 7.5-325 mg] 1 each PO Q6HR PRN #20 tab [Rx] Follow up Appointment(s)/Referral(s): Ewa Miller MD [STAFF PHYSICIAN] - 07/22/17 2:45 pm Zach Woodward MD [Primary Care Provider] - 1 Week Ambulatory/Diagnostic Orders: Prothrombin Time INR [LAB.AMB] Time Frame: 06/16/17, Location: Determined By Patient Miscellaneous Radiology Order [RAD.AMB] Time Frame: 06/18/17, Location: Determined By Patient Activity/Diet/Wound Care/Special Instructions: Liver biopsy at [facility] June arrive at 0900. Outpatient PT/INR Friday June 16, 2017 follow up with PCP for results prior to liver biopsy. Use stool softener as needed for constipation. Take Maalox as needed and take Protonix as scheduled. Discharge Disposition: HOME SELF-CARE
[2017-06-12 14:00] VITALS: BP 105/74; PULSE 85
== END 2017-06-12 14:40 | disposition home or self-care (01) | DRG 392 ==
LOC: EC 04:11 → 6SEL 08:46 → 5ONC 06-09 15:47
PROVIDERS: ADMIT Family Medicine; ATTEND Family Medicine
PROC: 3E0234Z Introduction of Serum, Toxoid and Vaccine into Muscle, Percutaneous Approach (ICD-10-PCS; principal; 2017-06-08)
PROC: 3E0234Z Introduction of Serum, Toxoid and Vaccine into Muscle, Percutaneous Approach (ICD-10-PCS; 2017-06-08)
PROC: 0DJ08ZZ Inspection of Upper Intestinal Tract, Via Natural or Artificial Opening Endoscopic (ICD-10-PCS; 2017-06-12)
DX: K21.0 Gastro-esophageal reflux disease with esophagitis (principal); C78.7 Secondary malignant neoplasm of liver and intrahepatic bile duct; K76.9 Liver disease, unspecified; I48.0 Paroxysmal atrial fibrillation; R79.1 Abnormal coagulation profile; T45.515A Adverse effect of anticoagulants, initial encounter; E78.5 Hyperlipidemia, unspecified; E78.00 Pure hypercholesterolemia, unspecified; I10 Essential (primary) hypertension; Z23 Encounter for immunization; I25.10 Atherosclerotic heart disease of native coronary artery without angina pectoris; Z79.01 Long term (current) use of anticoagulants; Z79.899 Other long term (current) drug therapy; Z85.46 Personal history of malignant neoplasm of prostate; Z95.1 Presence of aortocoronary bypass graft; Z86.12 Personal history of poliomyelitis; Z87.891 Personal history of nicotine dependence; Z92.3 Personal history of irradiation; Z87.11 Personal history of peptic ulcer disease
CPT/HCPCS: 36415; 43235; 71046; 74177; 74181; 76705; 80053; 80061; 80074; 82105; 82150; 82378; 82550; 82553; 83690; 83735; 83880; 84153; 84484; 85025; 85610; 85730; 86301; 93005; 96372; 96374; 99285

== ENCOUNTER → 2017-06-18 | Day surgery (SDC) | payer OTHER ==
[~2017-06-18] MED LIST: ALPRAZolam 0.5 MG TAB PO STA; HYDROmorphone 2 MG TAB PO STA
[2017-06-18 09:37] VITALS: TEMP 97.4
[2017-06-18 09:39] LABS: Mean Platelet Volume 7.2; Platelet Count 327 k/uL (150-450)
--- NOTE | 2017-06-18 12:10 | CT ---
EXAMINATION TYPE: CT biopsy liver DATE OF EXAM: 06/18/2017 COMPARISON: NONE HISTORY: Liver mass PROCEDURE: The risks, applications, benefits and alternatives, were discussed with the patient and questions wer e answered. Informed consent was obtained. The patient was placed supine on the fluoroscopic table, prepped and draped in the usual sterile fashion. A 22-gauge system was utilized with direct passage of the needle into the right lobe liver lesion un alvin CT guidance. Samples were obtained with fine needle aspiration. Pathology confirmed adequate sa mple. The patient was stable throughout procedure and remained stable upon discharge from radiology. All e lements of maximal barrier and sterile technique were utilized. IMPRESSION: 1. Successful right lobe liver mass fine needle aspiration under CT guidance.
[2017-06-18 12:52] VITALS: RESP 16
[2017-06-18 13:41] VITALS: BP 93/63; PULSE 88
== END | disposition home or self-care (01) ==
LOC: RADPROMAIN 08:52
PROVIDERS: ATTEND Internal Medicine Gastroenterology
DX: C61 Malignant neoplasm of prostate (principal); C78.7 Secondary malignant neoplasm of liver and intrahepatic bile duct
CPT/HCPCS: 10022; 36415; 47000; 77012; 85049; 88173; 88305; 88341; 88342

== ENCOUNTER 2017-06-27 05:20 | Inpatient (IN) | payer OTHER ==
[2017-06-27] MEDS ORDERED: MORPHINE SULFATE 4 MG/ML SYRINGE IV STA (06:00)
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
[2017-06-27] MEDS ORDERED: ONDANSETRON 4 MG/2 ML VIAL IVP STA (06:39)
[2017-06-27 06:52] LABS: Anisocytosis Slight; Basophils % (A) 0 %; Eosinophils # (A) 0.2 k/uL (0-0.7); Eosinophils % (A) 2 %; HCT 40.2 % (39.0-53.0); HGB 13.5 gm/dL (13.0-17.5); Lymphocytes # (A) 0.6 k/uL (1.0-4.8); Lymphocytes % (A) 7 %; MCH 32.2 pg (25.0-35.0); MCHC 33.6 g/dL (31.0-37.0); Macrocytosis Slight; Monocytes # (A) 0.3 k/uL (0-1.0); Monocytes % (A) 4 %; Neutrophils # (A) 7.3 k/uL (1.3-7.7); Neutrophils % (A) 86 %; Platelet Count 287 k/uL (150-450); RBC 4.19 m/uL (4.30-5.90); RDW 16.8 % (11.5-15.5); WBC 8.4 k/uL (3.8-10.6)
[2017-06-27] MEDS ORDERED: SODIUM CHLORIDE 0.9% 500 ML IV STA (06:53)
[2017-06-27 07:05] LABS: INR 1.5 (<1.2); Partial Thromboplastin Time 29.6 sec (22.0-30.0); Prothrombin Time 13.6 sec (9.0-12.0)
[2017-06-27 07:11] LABS: Albumin 2.7 g/dL (3.5-5.0); Potassium 5.7 mmol/L (3.5-5.1); Total Bilirubin 4.8 mg/dL (0.2-1.3); Total Protein 5.7 g/dL (6.3-8.2)
[2017-06-27 07:17] LABS: Lactic Acid, Venous 2.6 mmol/L (0.7-2.0)
--- NOTE | 2017-06-27 07:22 | XR ---
EXAMINATION TYPE: XR chest 1V portable DATE OF EXAM: 06/27/2017 HISTORY: Pain. REFERENCE: Previous study dated 06/08/2017. FINDINGS: There has been a midline sternotomy. The study is lordotic in its projection. Allowing for this the lungs appear clear. Pleural spaces are clear. The heart is not enlarged. Note is made of a healed fracture of the left clavicle. There are degenerative changes in both AC carl nts. There is evidence of severe rotator cuff disease on the right. IMPRESSION: NO ACUTE INTRATHORACIC ABNORMALITY.
[2017-06-27] MEDS ORDERED: MORPHINE SULFATE 4 MG/ML SYRINGE IVP STA (08:59)
[2017-06-27] MEDS ORDERED: SODIUM CHLORIDE 0.9% 1,000 ML IV STA ×3 (09:00→11:28)
[2017-06-27] MEDS ORDERED: NALOXONE 0.4 MG/ML 1 ML VIAL IV PRN (09:25)
[2017-06-27] MEDS ORDERED: MORPHINE SULFATE 4 MG/ML SYRINGE IV PRN (09:25)
[2017-06-27] MEDS: PANTOPRAZOLE 40 MG/10 ML VIAL IV SCH (09:58)
[2017-06-27] MEDS ORDERED: SODIUM CHLORIDE 0.9% 1,000 ML IV ONE (12:24)
[2017-06-27] MEDS ORDERED: PHENYLEPHRINE 40 MG in SODIUM CHLORIDE 0.9% 250 ML IV SCH (13:15)
[2017-06-27] MEDS ORDERED: VANCOMYCIN IV PER PHARMACY 1 EACH MISC MISCELLANE PRN ×2 (13:23→20:02)
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
[2017-06-27] MEDS ORDERED: VANCOMYCIN 1,750 MG in SODIUM CHLORIDE 0.9% 250 ML IVPB ONE (13:45)
--- NOTE | 2017-06-27 15:38 | CONS ---
CONSULTATION REASON FOR CONSULT: Renal failure. DATE OF CONSULTATION: 06/27/2017. HISTORY OF PRESENT ILLNESS: The patient is a 62-year-old male with a history of metastatic prostate cancer with mets to the liver. Patient was admitted to the hospital with increased abdominal distention and decreased p.o. intake, nausea, vomiting. He also had increased lower extremity edema over the last 2 weeks prior to admission. The patient denies any prior history of kidney disease. His serum creatinine was 3.87 mg/dL on admission. The patient stated that he had not had much urine output as well. Previous creatinine on 06/12/2017 was 1.03. Blood pressure has been low with systolic in the 80s to 90s. Currently patient is receiving IV fluids. He is not short of breath. PAST MEDICAL HISTORY: Metastatic prostatic cancer. Coronary artery disease, hyperlipidemia, hypertension, osteoarthritis. PAST SURGICAL HISTORY: Coronary artery bypass surgery, coronary artery stenting, right inguinal hernia repair, colonoscopy, EGD. SOCIAL HISTORY: Positive for patient being a former smoker. No history of drug abuse or alcohol abuse. MEDICATIONS: Prior to admission included Lasix, Zestril, Lopressor Flomax, Protonix, Percocet. ALLERGIES: None. REVIEW OF SYSTEMS: As per HPI. Other systems negative. PHYSICAL EXAMINATION: Patient is currently comfortable, awake. He is not in any acute distress. Blood pressure 89/54, heart rate 102 per minute. Patient is afebrile. Examination of the heart: S1, S2. Examination lungs: Decreased breath sounds bases. Bilateral breath sounds are heard. Abdomen is soft, distended with ascites noted. Examination lower extremity shows edema 2+ bilaterally. LABS: Sodium 132, potassium 5.7, chloride is 97, CO2 is 19, BUN 69, serum creatinine 3.87, hemoglobin 13.5 g/dL. Lactic acid was 2.6, now down to 2.0. The UA is not available and chest x-ray shows no acute pulmonary process. ASSESSMENT: 1. Acute kidney injury secondary to hypotension, hypoperfusion. The patient has not had any urine output since he came in. He may likely need Merida catheter placement. We will ask for a bladder scan as well, however, that may be inaccurate given significant ascites. There are no nephrotoxic agents on board. We will also start the patient on midodrine given the hypotension. Need to rule out hepatorenal syndrome. UA will be sent along with random urine sodium. 2. Hyperkalemia associated with acute kidney injury, rule out obstructive uropathy. Repeat labs this evening. 3. Hypotension rule out underlying infection, rule out urinary tract infection versus subacute bacterial peritonitis. 4. Metastatic prostatic cancer. PLAN: Start midodrine, may continue with IV fluids for now. Repeat the labs this evening and check urine output. If the patient remains hypotensive, he may need to start IV pressors. Thank you for this consultation. We will continue to follow the patient with you during his hospitalization. MMODL / IJN: [id number] /
--- NOTE | 2017-06-27 15:42 | US ---
EXAMINATION TYPE: US abdomen complete DATE OF EXAM: 06/27/2017 COMPARISON: US 06/08/2017, CT 06/08/2017 CLINICAL HISTORY: elevated LFT. Bloating, pain. History of prostate cancer, liver metastasis. Extreme ly difficult and limited exam due to overlying bowel gas and bloating. Patient is unable to roll onto his side, unable to take a deep breath in and hold EXAM MEASUREMENTS: Liver Length: 28.0 cm Gallbladder Wall: 0.2 cm CBD: 0.6 cm Spleen: 14.6 cm Right Kidney: 10.4 x 4.7 x 4.6 cm Left Kidney: Not visualized on this exam due to overlying bowel gas Pancreas: Obscured by bowel gas Liver: Heterogeneous and coarse. Enlarged. Large area of echogenicity visualized in the right lobe Gallbladder: wnl as visualized Evidence for sonographic Avalos's sign: no CBD: wnl as visualized, distal portion is obscured by bowel gas Spleen: Enlarged Right Kidney: No hydronephrosis or masses seen Left Kidney: Not visualized on this exam due to overlying bowel gas Upper IVC: Not well visualized on this exam Abd Aorta: Proximal aorta appears ectatic at 2.8 cm. Distal portion is obscured by bowel gas IMPRESSION: Heterogeneous liver likely secondary to previously described metastasis. Otherwise subopt imal examination.
[2017-06-27 17:03] LABS: Amorphous Sediment,Urine Moderate /hpf; Appearance,Urine Turbid (Clear); Bilirubin,Urine 1+ (Negative); Blood,Urine Large (Negative); Color,Urine Dark Brown; Glucose,Urine (UA) Negative (Negative); Hyaline Casts,Urine 89 /lpf (0-2); Ketones,Urine Negative (Negative); Leukocyte Esterase,Urine Trace (Negative); Nitrite,Urine Negative (Negative); Protein,Urine 1+ (Negative); RBC,Urine 18 /hpf (0-5); Specific Gravity,Urine 1.016 (1.001-1.035); Squamous Epithelial Cell,Urine 1 /hpf (0-4); Urobilinogen,Urine <2.0 mg/dL (<2.0)
[2017-06-27] MEDS ORDERED: CEFEPIME 1 GM in SODIUM CHLORIDE 0.9% 50 ML IVPB SCH (19:00)
[2017-06-27 19:07] LABS: Glucose,Whole Blood 82 mg/dL (75-99)
[2017-06-27] MEDS ORDERED: NOREPINEPHRIN 4 MG-0.9% NS PMX 4 MG/250 ML ML IV ONE (19:35)
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
[2017-06-27] MEDS ORDERED: MORPHINE SULFATE/PF 10MG/10ML VL IV PRN (20:24)
[2017-06-27] MEDS ORDERED: LACTATED RINGERS 1,000 ML IV ONE (20:40)
[2017-06-27] MEDS: SODIUM CHLORIDE 0.9% 1,000 ML IV SCH (21:12)
[2017-06-27] MEDS: SODIUM CHLORIDE 0.9% 99 ML with VASOPRESSIN 20 UNIT IV SCH ×2 (21:14)
[2017-06-27] MEDS: IOHEXOL 350 MG/ML 25 ML BOTTLE (ORAL USE) PO PRN ×2 (21:15→22:17)
[2017-06-27] MEDS: NOREPINEPHRIN 4 MG-0.9% NS PMX 4 MG/250 ML ML IV SCH ×2 (21:15→23:57)
[2017-06-27 22:29] VITALS: BMI 32.3
[2017-06-27] MEDS ORDERED: EPINEPHrine 10 ML SYRINGE (0.1 MG/ML) ONE (22:45)
[2017-06-27] MEDS ORDERED: ATROPINE SULFATE 0.1 MG/ML 10ML SYRINGE ONE (22:45)
--- NOTE | 2017-06-27 23:15 | CT ---
EXAMINATION TYPE: CT abdomen pelvis wo con DATE OF EXAM: 06/27/2017 COMPARISON: 06/08/2017 HISTORY: Abdominal distention and pain. History of hernia repair and CABG. CT DLP: 2046.20 mGycm Automated exposure control for dose reduction was used. TECHNIQUE: Helical acquisition of images was performed from the lung bases through the pelvis. FINDINGS: There is mild right pleural effusion. There is small left pleural effusion. There is some consolidati on and atelectasis at the right lung base. There is subcutaneous edema around the abdomen. There is n o pericardial effusion. Liver is enlarged. Spleen appears normal. There is no pancreatic mass. Bile d ucts are not dilated. Gallbladder has normal size. There is ascites fluid around the liver and in the right paracolic gutter. There is free fluid in the pelvis. There is a Merida catheter in the urinary bladder. There are implants in the prostate gland. There is no sign of free air. I see no intestinal wall thickening. There are no dilated loops. There is no adrenal mass. Kidneys of normal size. There is no hydronephrosis. Ureters are not dilated . There is no retroperitoneal adenopathy. Liver measures 31 cm in length. There is heterogeneous dens ity throughout the liver and more noticeable in the entire right lobe. IMPRESSION: HEPATOMEGALY. THERE ARE MULTIPLE HYPODENSE AREAS ON THE LIVER ON THE OLD CT SCAN CONSISTENT WITH META STATIC DISEASE. LIVER IS HETEROGENEOUS ON TODAY'S EXAM CONSISTENT WITH METASTATIC DISEASE. THERE ARE PLEURAL EFFUSIONS AND RIGHT BASILAR PULMONARY INFILTRATE AND ATELECTASIS AT APPEAR SLIGHTLY WORSE THAN OLD EXAM. THERE IS ASCITES FLUID IN THE ABDOMEN THAT IS INCREASED SLIGHTLY COMPARED TO OLD EXAM. NO FREE AIR. N O EVIDENCE OF A BOWEL OBSTRUCTION. THERE IS SUBCUTANEOUS EDEMA AROUND THE ABDOMEN THAT IS INCREASED COMPARED TO OLD EXAM. There is 50% w edging of T11 vertebra that is unchanged compared to old exam.
[2017-06-27] MEDS ORDERED: FUROSEMIDE 10 MG/ML 10 ML VIAL IV STA (23:37)
[2017-06-27] MEDS: PIPERACILLIN-TAZOBACTAM 3.375 GM in DEXTROSE/WATER 1 50ML.BAG IVPB SCH (23:57)
[2017-06-27] MEDS: HEPARIN SODIUM,PORCINE 5,000 UNIT/ML 1 ML VIAL SQ SCH (23:58)
[2017-06-28] MEDS ORDERED: IPRATROPIUM-ALBUTEROL 3 ML NEB INHALATION SCH
[2017-06-28] MEDS: SODIUM CHLORIDE 0.9% 1,000 ML IV SCH (00:10)
--- NOTE | 2017-06-28 00:40 | XR ---
EXAMINATION TYPE: XR chest 1V portable DATE OF EXAM: 06/28/2017 COMPARISON: Yesterday HISTORY: NG tube placement TECHNIQUE: Single frontal view of the chest is obtained. FINDINGS: There is a poor inspiration and elevated right diaphragm. Subpulmonic effusion is possible on the right side. There is no gross heart failure. There are sternal wires. There is nasogastric tu be that has tip below the diaphragm. The tip is not well seen. There are chest leads. IMPRESSION: NG tube appears to be in good position. Possible subpulmonic effusion on the right side.
[2017-06-28] MEDS ORDERED: IPRATROPIUM-ALBUTEROL 3 ML NEB INHALATION PRN (00:42)
[2017-06-28] MEDS: NOREPINEPHRIN 16 MG-0.9%NS PMX 16 MG/250 ML ML IV SCH ×2 (03:56→21:42)
[2017-06-28] MEDS ORDERED: HEPARIN SODIUM,PORCINE 5,000 UNIT/ML 1 ML VIAL ONE (05:20)
[2017-06-28] MEDS: SODIUM CHLORIDE 0.9% 99 ML with VASOPRESSIN 20 UNIT IV SCH ×6 (05:34→21:42)
[2017-06-28 06:54] LABS: Anisocytosis Slight; Basophils % (A) 0 %; Eosinophils # (A) 0.1 k/uL (0-0.7); Eosinophils % (A) 1 %; HCT 39.6 % (39.0-53.0); HGB 12.1 gm/dL (13.0-17.5); Hypochromasia Slight; Lymphocytes # (A) 0.6 k/uL (1.0-4.8); Lymphocytes % (A) 8 %; MCH 30.4 pg (25.0-35.0); MCHC 30.6 g/dL (31.0-37.0); MCV 99.2 fL (80.0-100.0); Macrocytosis Slight; Mean Platelet Volume 8.1; Monocytes # (A) 0.4 k/uL (0-1.0); Monocytes % (A) 5 %; Neutrophils # (A) 6.8 k/uL (1.3-7.7); Neutrophils % (A) 84 %; Platelet Count 333 k/uL (150-450); RBC 3.99 m/uL (4.30-5.90); WBC 8.1 k/uL (3.8-10.6)
[2017-06-28 07:01] LABS: INR 1.8 (<1.2); Prothrombin Time 16.3 sec (9.0-12.0)
[2017-06-28 07:08] LABS: Albumin 2.8 g/dL (3.5-5.0); Calcium 7.9 mg/dL (8.4-10.2); Magnesium 1.8 mg/dL (1.6-2.3); Phosphorus 7.9 mg/dL (2.5-4.5); Potassium 5.8 mmol/L (3.5-5.1); Total Bilirubin 5.2 mg/dL (0.2-1.3); Total Protein 6.2 g/dL (6.3-8.2)
[2017-06-28] MEDS: PANTOPRAZOLE 40 MG/10 ML VIAL IV SCH (08:21)
[2017-06-28] MEDS ORDERED: MORPHINE SULFATE/PF 10MG/10ML VL IVP PRN (09:41)
[2017-06-28] MEDS: HEPARIN SODIUM,PORCINE 5,000 UNIT/ML 1 ML VIAL SQ SCH ×2 (10:26→19:11)
[2017-06-28] MEDS: ALBUMIN HUMAN 25% 50 ML in EMPTY BAG 1 BAG IVPB SCH ×2 (10:26→13:52)
--- NOTE | 2017-06-28 10:36 | PN ---
PROGRESS NOTE DATE OF SERVICE: 06/28/2017. HISTORY: The patient is seen for followup for acute kidney injury which is ATN versus hepatorenal syndrome. The patient has been oliguric. He has an indwelling Merida catheter. His condition worsened significantly overnight with worsening hypotension requiring about 48 mcg of Levophed. The patient was complaining of increased shortness of breath. He was dialyzed last night, however, we were not able to get more than 500 mL of fluid off. The he does have underlying hepatic cellular cancer which seems to have progressed. The patient is maintained on empiric antibiotics. PHYSICAL EXAMINATION: On examination today, blood pressure 81/53, heart rate 106 per minute. He is afebrile. Examination of the heart S1, S2. Examination lungs decreased breath sounds at bases. Abdomen is soft, distended, nontender. Examination lower extremities shows edema 3+ bilaterally. GAMING DEALER exam shows patient is awake, following commands. No focal deficits noted. LABS: Sodium 133, potassium 5.8, CO2 is 15, BUN 52, serum creatinine 3.65, hemoglobin 12.1 g/dL. ASSESSMENT: 1. Acute kidney injury, acute tubular necrosis versus hepatorenal syndrome. We will start cocktail with albumin and Sandostatin. Patient and is maintained on midodrine already. I will change the IV fluids to IV bicarb. We will arrange for hemodialysis again today. His abdominal pressures were elevated with bladder pressure of about 22. Interventional Radiology was called in for emergent paracentesis to help relieve the pressure, however, they stated that he did not seem to have much fluid. 2. Rule out subacute bacterial peritonitis. Maintained on antibiotics. PLAN: Add albumin and Sandostatin. Repeat hemodialysis today. Change IV fluids to bicarb drip. MMODL / IJN: [id number] /
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
[2017-06-28 11:16] LABS: Hepatitis B Surface AB- Quant 3.5 mIU/mL
[2017-06-28] MEDS: PIPERACILLIN-TAZOBACTAM 3.375 GM in DEXTROSE/WATER 1 50ML.BAG IVPB SCH (11:28)
--- NOTE | 2017-06-28 11:44 | US ---
Therapeutic paracentesis discontinued. DATE OF EXAM: 06/28/2017 CLINICAL HISTORY: Increased abdominal pressure possible abdominal compartment syndrome I was present and supervised the scanning of the patient by the technologist. Preliminary imaging of the abdomen demonstrated no sizable fluid for percutaneous drainage. There is a trace amount of fluid in the pelvis and a tiny amount of fluid surrounding the liver concordant wit h the recent CT scan of 06/27/2017. There is no sizable collection for safe percutaneous drainage. IMPRESSION: Discontinued paracentesis secondary to no sizable fluid collection for safe percutaneous drainage.
[2017-06-28] MEDS: OCTREOTIDE 200 MCG in SODIUM CHLORIDE 0.9% 100 ML IV SCH ×2 (12:23→19:11)
[2017-06-28 15:07] LABS: ABG Base Excess -7.3 mmol/L; ABG HCO3 18 mmol/L (21-25); ABG Oxygen Saturation 95.2 % (94-97); ABG PCO2 33 mmHg (35-45); ABG PH 7.35 (7.35-7.45); ABG PO2 76 mmHg (83-108); ABG TCO2 19 mmol/L (19-24)
[2017-06-28] MEDS: ADENOSINE 3 MG/ML 2 ML VIAL IVP STA ×2 (15:10→15:30)
[2017-06-28] MEDS ORDERED: ADENOSINE 3 MG/ML 2 ML VIAL IVP STA (15:15)
[2017-06-28] MEDS ORDERED: METOPROLOL TARTRATE 5 MG/5 ML VIAL IVP ONE (15:20)
[2017-06-28] MEDS ORDERED: DEXTROSE 5% IN WATER 250 ML with AMIODARONE 300 MG IV STA (15:28)
[2017-06-28] MEDS ORDERED: DEXTROSE 5% IN WATER 100 ML with AMIODARONE 150 MG IV ONE (15:41)
[2017-06-28] MEDS ORDERED: AMIODARONE 450 MG in DEXTROSE 5% IN WATER 250 ML IV SCH ×2 (15:42)
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
[2017-06-28] MEDS ORDERED: VANCOMYCIN 1,750 MG in SODIUM CHLORIDE 0.9% 250 ML IVPB ONE (16:00)
--- NOTE | 2017-06-28 16:25 | US ---
EXAMINATION TYPE: US venous doppler duplex LE DATE OF EXAM: 06/28/2017 2:40 PM COMPARISON: NONE CLINICAL HISTORY: thrombosis . bilateral leg edema SIDE PERFORMED: Bilateral TECHNIQUE: The lower extremity deep venous system is examined utilizing real time linear array sonog karen with graded compression, doppler sonography and color-flow sonography. VESSELS IMAGED: External Iliac Vein (EIV) Common Femoral Vein Deep Femoral Vein Greater Saphenous Vein * Femoral Vein Popliteal Vein Small Saphenous Vein * Proximal Calf Veins (* superficial vessels) Grayscale, color doppler, spectral doppler imaging performed of the deep veins of the lower extremiti es. There is normal flow, compressibility, vascular waveforms. Right Leg: Negative for DVT Left Leg: Negative for DVT Exam performed out of order as patient was having dialysis through a right groin line. Vessels are di fficult to visualize due to extensive pitted edema. There is good color flow and compressibility of v essels. IMPRESSION: Exam is slightly limited due to extensive edema. However no gross sonographic evidence of deep venous arthrosis is seen within either lower extremity.
--- NOTE | 2017-06-28 17:38 | US ---
EXAMINATION TYPE: US portal vein DATE OF EXAM: 06/28/2017 COMPARISON: US & CT CLINICAL HISTORY: portal vein thrombosis . EXAM MEASUREMENTS: Liver Length: 27.7 cm Gallbladder Wall: 0.5 CBD: 0.5 cm Right Kidney: 11.6 x 5.1 x 5.4 ANATOMY: Pancreas: not visualized due to midline bowel gas Liver: enlarged and diffusely heterogeneous compatible with the patient's known history of multifoca l metastatic liver disease. Color flow patency within the portal vein: yes Portal Vein Flow: Hepatopetal Gallbladder: no stones seen Evidence for sonographic Avalos's sign: No CBD: wnl Right Kidney: wnl Ascites noted? no Patient recently diagnosed with prostate cancer with mets to liver. Liver is so enlarged that it is d ifficult to see vasculature. Mild gallbladder wall thickening is likely related to adjacent hepatocel lular disease and incomplete distention. Common bile duct is within normal limits measuring 5 mm. IMPRESSION: 1. Vascular patency of the portal vein with appropriate hepatopedal flow. 2. Diffuse enlargement and heterogeneity of the hepatic parenchyma compatible with patient's known hi story of multifocal metastatic liver disease. 3. Minimal gallbladder wall thickening is likely due to adjacent hepatocellular disease and incomplet e distention as the common bile duct is within normal limits. 4. Nonvisualization of the pancreas.
[2017-06-28] MEDS ORDERED: METOPROLOL TARTRATE 5 MG/5 ML VIAL IVP STA (18:58)
[2017-06-28 20:17] VITALS: TEMP 97.2
--- NOTE | 2017-06-28 21:36 | P.DS ---
Providers Date of admission: 06/27/17 09:25 Attending physician: Teresita Conrad Consults: 06/27/17 09:26 Consult Physician Routine Consulting Provider: Evin Miller Consult Reason/Comments: Prostate cancer with metastasis Do you want consulting provider notified?: Yes Consult Physician Urgent Consulting Provider: Gavin Reyes Consult Reason/Comments: Oncological care Do you want consulting provider notified?: Yes Consult Physician Urgent Consulting Provider: Shima Black Consult Reason/Comments: arf Do you want consulting provider notified?: Yes 06/27/17 13:10 Consult Physician Routine Consulting Provider: Carmita Shah Consult Reason/Comments: abd pain, elevated LFT Do you want consulting provider notified?: Yes 06/27/17 13:12 Consult Physician Routine Consulting Provider: Jamil Aguirre Consult Reason/Comments: elevated LFT Do you want consulting provider notified?: Yes 06/27/17 19:54 Consult Physician Urgent Consulting Provider: Dimitri Hunt Consult Reason/Comments: icu management Do you want consulting provider notified?: Already Contacted 06/27/17 20:06 Consult Physician Urgent Consulting Provider: Jerry Sutton Consult Reason/Comments: Surgical Do you want consulting provider notified?: Yes 06/28/17 00:54 Consult Physician Stat Consulting Provider: Jakub Marquez Consult Reason/Comments: stat line placement Do you want consulting provider notified?: Yes 06/28/17 15:27 Consult Physician Stat Consulting Provider: Artem Cabello Consult Reason/Comments: SVT Do you want consulting provider notified?: Already Contacted Primary care physician: [facility] Course: I 62 y/o male presented with dyspnea, abd pain and severe debility and weakness. pt was septic in ER and Marty gtt started with fluid bolouses and admitted to ICU , pt was not responding and was aneuric and nephrology recommended emergent dialysis, catheter was inserted and dialysis initiated immediately when pt was on max dose Levophed and Vasopressin. pt developed A Fib with RVR, new onset and was started on Amio drip and 2 IVP Lopressor by cardiology. family requested transfer to [facility] and after multiple requests for extra blood work and imaging by accepting physician at [facility] which took greater than 2.5 hours including: ABG, doppler to r/o portal vein thrombosis. decision was to reject pt as pt does not meet the criteria and unsafe transfer. then family requested [facility] who accepted the pt after multiple phone call pt was accepted to be transfer and I requested pt to be flown to [facility] if possible.prognosis remain guarded. Plan - Discharge Summary New Discharge Prescriptions: No Action Tamsulosin HCl [Flomax] 0.4 mg PO DAILY@1200 Lisinopril [Zestril] 20 mg PO BID Metoprolol Tartrate [Lopressor] 75 mg PO BID Pantoprazole Sodium [Protonix] 40 mg PO DAILY #30 tablet. Furosemide [Lasix] 20 mg PO DAILY oxyCODONE-APAP 7.5-325MG [Percocet 7.5-325 mg] 1 tab PO Q6HR PRN PRN Reason: Pain Discharge Medication List Lisinopril [Zestril] 20 mg PO BID 06/08/17 [History] Metoprolol Tartrate [Lopressor] 75 mg PO BID 06/08/17 [History] Tamsulosin HCl [Flomax] 0.4 mg PO DAILY@1200 06/08/17 [History] Pantoprazole Sodium [Protonix] 40 mg PO DAILY #30 tablet. 06/12/17 [Rx] Furosemide [Lasix] 20 mg PO DAILY 06/18/17 [History] oxyCODONE-APAP 7.5-325MG [Percocet 7.5-325 mg] 1 tab PO Q6HR PRN 06/27/17 [ History] Follow up Appointment(s)/Referral(s): Zach Woodward MD [Primary Care Provider] - 1-2 days
[2017-06-28 21:45] VITALS: BP 93/70; PULSE 154; RESP 20
--- NOTE | 2017-06-29 10:37 | CONS ---
DATE OF CONSULTATION: 06/29/2017 I was consulted for this patient for placement of urgent dialysis catheter. Patient has history of acute chronic abdominal pain, history of prostate cancer with diagnosis of liver mets, history of hyperkalemia, history of acute kidney injury, multifocal in nature, history of dehydration. Patient was seen in the ICU. Patient has been intubated. PAST MEDICAL HISTORY: Past medical history of coronary artery disease, cancer, hyperlipidemia, hypertension. PHYSICAL EXAMINATION: On examination, the patient had been intubated. Chest has crackles bilaterally. Abdomen is protuberant and distended. Femorals are diminished bilateral. Patient has marked swelling of both lower extremities. PLAN: Placement of the dialysis catheter urgently. MMODL / IJN: [id number] / MTDD
--- NOTE | 2017-06-29 12:28 | PCN ---
PROCEDURE NOTE PREOPERATIVE DIAGNOSIS: Acute renal failure. PROCEDURE: Placement of the triple-lumen dialysis catheter right femoral approach. The patient was seen in the intensive care unit. Right groin was prepped and draped in the usual sterile manner and 1% lidocaine infiltrated. Micropuncture right femoral vein. Micropuncture guide was passed. A 4-Macedonian dilator was placed on the top of the guidewire. After that, the guidewire which was passed without any resistance and dilator was advanced on the top of the guidewire then we placed triple- lumen dialysis catheter. Flushed with heparin saline and hep-locked and secured with 3- 0 nylon. Dressing applied. Patient tolerated the procedure well. MMODL / IJN: [id number] /
== END 2017-06-28 22:24 | disposition other institution (70) | DRG 682 ==
LOC: EC 05:20 → 5MS5E 09:25 → 6ICU 14:00
PROVIDERS: ADMIT Internal Medicine; ATTEND Internal Medicine
PROC: 06HM33Z Insertion of Infusion Device into Right Femoral Vein, Percutaneous Approach (ICD-10-PCS; principal; 2017-06-28)
PROC: 5A1D70Z Performance of Urinary Filtration, Intermittent, Less than 6 Hours Per Day (ICD-10-PCS; principal; 2017-06-28)
DX: N17.0 Acute kidney failure with tubular necrosis (principal); K76.7 Hepatorenal syndrome; K72.00 Acute and subacute hepatic failure without coma; R57.1 Hypovolemic shock; C78.7 Secondary malignant neoplasm of liver and intrahepatic bile duct; E87.2 Acidosis; I47.1 Supraventricular tachycardia; I48.91 Unspecified atrial fibrillation; E87.5 Hyperkalemia; I25.10 Atherosclerotic heart disease of native coronary artery without angina pectoris; E78.5 Hyperlipidemia, unspecified; I10 Essential (primary) hypertension; G89.29 Other chronic pain; Z79.899 Other long term (current) drug therapy; Z92.3 Personal history of irradiation; Z95.1 Presence of aortocoronary bypass graft; Z86.12 Personal history of poliomyelitis; Z87.891 Personal history of nicotine dependence; Z82.49 Family history of ischemic heart disease and other diseases of the circulatory system; Z85.46 Personal history of malignant neoplasm of prostate; Z87.828 Personal history of other (healed) physical injury and trauma; Z95.5 Presence of coronary angioplasty implant and graft
CPT/HCPCS: 36415; 36600; 51798; 71045; 74176; 76700; 76705; 80053; 81001; 82140; 82150; 82805; 83605; 83690; 83735; 84100; 84132; 85025; 85610; 85730; 86706; 87040; 87340; 93005; 93970; 93976; 96361; 96365; 96366; 96368; 96375; 96376; 99285